=== PATIENT | male | born 1970 | race Two or more races ===

== ENCOUNTER 2018-09-19 15:17 | Emergency (ER) | payer OTHER ==
[~2018-09-19] VITALS: Ht 180.3 cm; Wt 158.8 kg
[2018-09-19 15:36] VITALS: BP 177/99
[2018-09-19] MEDS ORDERED: HYDROcodone-ACET 10/325MG TAB PO ONE (17:15)
[2018-09-19] MEDS ORDERED: KETOROLAC TROMETH 60MG/2ML VIAL IM ONE (17:15)
== END 2018-09-19 18:01 | disposition home or self-care (01) ==
LOC: ER 15:17
DX: M25.562 Pain in left knee (principal); J45.909 Unspecified asthma, uncomplicated; I10 Essential (primary) hypertension; M17.12 Unilateral primary osteoarthritis, left knee
CPT/HCPCS: 73562; 96372; 99283; J1885

== ENCOUNTER 2019-09-13 07:18 | Inpatient (IN) | payer OTHER ==
[2019-09-13] VITALS (9 sets, daily range): BP systolic 91–133; BP diastolic 50–86
[~2019-09-13] VITALS: Ht 182.9 cm; Wt 168.8 kg
[2019-09-13] MEDS ORDERED: NOREPINEPHRINE 8 MG/250ML KIT 250 ML IV ONE (07:31)
[2019-09-13] MEDS: MIDAZOLAM DRIP 50 mg/50mL 50 ML IV SCH ×3 (07:41→18:22)
[2019-09-13] MEDS ORDERED: MIDAZOLAM DRIP 50 mg/50mL 50 ML IV ONE ×2 (07:41→09:58)
[2019-09-13] MEDS ORDERED: SODIUM CHLORIDE 0.9% 1,000 ML IV ONE ×2 (08:07)
[2019-09-13] MEDS ORDERED: DexAMETHasone SOD PHOS 10MG/1ML VIAL INJ IV ONE (08:15)
[2019-09-13] MEDS ORDERED: FUROSEMIDE 40 MG/4 ML VIAL IV ONE (08:15)
[2019-09-13] MEDS ORDERED: AZITHROMYCIN 500MG/ 250ML 250 ML IV ONE (08:15)
[2019-09-13] MEDS ORDERED: cefTRIAXone 1GM/50ML D5W 50 ML IV ONE (08:15)
[2019-09-13 08:35] LABS: Basophils # (auto) 0.1 10 ^3/uL (0-0.2); Basophils % (auto) 0.6 % (0.0-2.0); Eosinophils # (auto) 0.8 10 ^3/uL (0-0.8); Hematocrit 43.9 % (41.0-53.0); Hemoglobin 13.9 g/dL (13.5-17.5); Lymphocytes # (auto) 2.4 10 ^3/uL (0.4-5.4); Lymphocytes % (auto) 14.9 % (10.0-50.0); Mean Corpuscular Hemoglobin 27.4 pg (28.0-32.0); Mean Corpuscular Hgb Conc. 31.7 g/dL (32.0-36.0); Mean Corpuscular Volume 86.5 fL (80.0-100.0); Monocytes # (auto) 0.9 10 ^3/uL (0-1.3); Monocytes % (auto) 5.6 % (0.0-12.0); Neutrophils # (auto) 12.1 10 ^3/uL (1.6-8.6); Neutrophils % (auto) 73.9 % (37.0-80.0); Nucleated Red Blood Cells % 0.3 %; Platelet Count (auto) 284 10^3/uL (140-450); Red Blood Cells 5.07 10^6/uL (4.5-5.90); Red Cell Distribution Width 14.9 % (11.8-14.3); White Blood Cell 16.4 10^3/uL (4.4-10.8)
[2019-09-13 08:48] LABS: INR 1.23 (0.9-1.15); Partial Thromboplastin Time 23.7 sec (23.64-32.05)
[2019-09-13 08:56] LABS: Albumin 2.7 g/dL (3.4-5.0); Potassium 3.7 mmol/L (3.5-5.1)
[2019-09-13 09:02] LABS: BUN/Creatinine Ratio 9.5; Bilirubin, Total 0.3 mg/dL (0.2-1.0); CRP High Sensitivity 0.71 mg/dL (< 0.3); Total Protein 6.7 g/dL (6.4-8.2)
[2019-09-13] MEDS ORDERED: NOREPINEPHRINE 8 MG/250ML KIT 250 ML IV SCH (10:15)
[2019-09-13 11:03] LABS: Urine Amorphous Crystal MOD /hpf (None Seen); Urine Bacteria FEW /hpf (None Seen); Urine Blood 2+ /uL (Negative); Urine Hyaline Cast FEW /lpf (0 - 2); Urine Specific Gravity 1.014 (1.001-1.035); Urine WBC 65 /hpf (0 - 3); Urine WBC Clumps PRESENT /hpf (None Seen)
[2019-09-13] MEDS ORDERED: IOHEXOL 350 MG/ML 100ML IJ ONE ×2 (13:24→13:25)
--- NOTE | 2019-09-13 13:58 | NUR ---
BARIATRIC AIR BED: Bariatric Air bed ordered at [facility] . Reference #[id number]. Please call [facility] at if needed to follow up. Addendum: 09/13/19 at 1402 by Kusum Billings RN Amended: Links added. Addendum: 09/13/19 at 1534 by Kusum Billings RN Received call from [facility] Delivery, ETA [phone]
[2019-09-13] MEDS: PROPOFOL 100 ML IV SCH ×4 (14:40→23:14)
--- NOTE | 2019-09-13 14:40 | NUR ---
WOUND CARE NOTE: Wound care in to see patient due to low Dez score of 12 and intubation status, putting patient to high risk for skin breakdown. Patient is 49 years old male with admitting diagnosis of SOB. Patient is resting in hospital bed in ERbed #5. Patient is intubated, sedated and mechanically ventilated. Patient appears to be in no pain using Jameson Aguilar Faces Pain Scale. Unable to turn patient at this time. Per BOBBY Alegre's reports, no open wound, no pressure injury noted. BOBBY Alegre at bedside. RECOMMENDATION: BID/PRN cleaning and application of Barrier cream to sacral, buttocks as preventative, frequent turning and repositioning schedule as condition permits, redistribute pressure points with pillows, elevate heels on pillows, continue monitoring by wound care while patient is mechanically ventilated.
[2019-09-13] MEDS: NOREPINEPHRINE 8 MG/250ML KIT 250 ML IV SCH ×2 (14:51→20:15)
[2019-09-13] MEDS ORDERED: MORPHINE SULF INJ 2 MG/ML SYRINGE 1ML IV PRN (15:00)
[2019-09-13] MEDS ORDERED: LORazepam 2MG/ML-1ML VIAL IV PRN (15:00)
[2019-09-13] MEDS ORDERED: NITROGLYCERIN 0.4 MG SL TAB SL PRN (15:00)
[2019-09-13] MEDS ORDERED: MORPHINE SULFATE 4 MG/ML SYR/VIAL IV PRN (15:00)
[2019-09-13] MEDS ORDERED: ENOXAPARIN SOD 80 MG/0.8ML SYRINGE SC ONE (15:00)
[2019-09-13] MEDS ORDERED: MONT10TA23 PO (15:02)
[2019-09-13] MEDS ORDERED: AML5T PO (15:02)
[2019-09-13] MEDS ORDERED: CAR125T PO (15:02)
[2019-09-13] MEDS ORDERED: FURO1TAB33 PO (15:02)
[2019-09-13] MEDS ORDERED: SIMV-8 PO (15:02)
[2019-09-13] MEDS ORDERED: HYDR-4833 PO (15:02)
[2019-09-13] MEDS ORDERED: NAPR500T31 PO (15:02)
[2019-09-13] MEDS ORDERED: ALBU108A5 IN (15:05)
[2019-09-13] MEDS ORDERED: LISI40TA11 PO (15:05)
[2019-09-13] MEDS ORDERED: POTA10TA51 PO (15:05)
[2019-09-13] MEDS ORDERED: IPRIH INH (15:05)
[2019-09-13] MEDS ORDERED: HYDR-4296 PO (15:05)
[2019-09-13] MEDS ORDERED: VANCOMYCIN PER PHARMACY 0 MG IV SCH (15:30)
[2019-09-13] MEDS ORDERED: HEPARIN SODIUM (PORCINE) 5000 UNITS/ML 1ML VIAL IV ONE ×2 (16:15→16:45)
[2019-09-13] MEDS: VANCOMYCIN 1GM/250ML 250 ML IV SCH (16:31)
[2019-09-13 16:57] LABS: INR 1.01 (0.9-1.15); Partial Thromboplastin Time 25.9 sec (23.64-32.05)
[2019-09-13] MEDS: HEPARIN DRIP/D5W 100UNITS/ML 250 ML IV SCH (16:57)
[2019-09-13 17:02] LABS: Magnesium 2.4 mg/dL (1.6-2.6)
[2019-09-13 17:04] LABS: Lactic Acid w/Reflex 2.9 mmol/L (0.4-2.0)
[2019-09-13] MEDS: FUROSEMIDE 40 MG/4 ML VIAL IV SCH (17:28)
[2019-09-13] MEDS: HYDROCORTISONE SOD SUCC 100 MG/2ML INJ VIAL IV SCH (17:28)
[2019-09-13] MEDS: PIPERACILLIN-TAZOB 3.375GM 100 ML IV SCH (17:28)
[2019-09-13] MEDS ORDERED: PIPERACILLIN-TAZOB 3.375GM 3.375 GM in D5W 5% 100 ML IV SCH (18:00)
[2019-09-13] MEDS ORDERED: VANCOMYCIN 1GM/250ML 250 ML IV SCH (22:00)
[2019-09-13] MEDS ORDERED: ENOXAPARIN SOD 80 MG/0.8ML SYRINGE SC SCH ×2 (22:00)
[2019-09-13] MEDS: FAMOTIDINE (10MG/ML) 2ML VL IV SCH (23:09)
[2019-09-13] MEDS: CARVEDILOL 3.125 MG TAB PO SCH (23:09)
--- NOTE | 2019-09-13 23:40 | NUR ---
Admit to ICU from ER on vent EDDIE MCKEON admitted to ICU via gurney on environmental monitoring technician, intubated and connected to portable vent. Patient transferred to bed, connected to mechanical ventilator by therapist, ZEFERINO at bedside. Patient connected to ICU monitoring, weighed by bedscale. NOTE:DRIPS VERSED 15MG/HR, PROPOFOL 50 MCG/KG/MIN, LEVOPHED 2MCG/MIN, HEPARIN 20 ML/HR. MANAGER CORPORATE MARKETING BROUGHT SPECIAL MATTRESS BED FROM ER AND WE TRANSFERRED PATIENT TO THAT BED.
[2019-09-13 23:49] LABS: INR 1.07 (0.9-1.15)
[2019-09-13 23:53] LABS: Partial Thromboplastin Time 110.6 sec (23.64-32.05)
--- NOTE | 2019-09-13 23:55 | NUR ---
Patient bathe/linen change Patient given complete bath. Skin integrity assessed for any changes. Linens changed. Patient repositioned for comfort.
[2019-09-14] VITALS (103 sets, daily range): BP systolic 91–150; BP diastolic 51–99
[2019-09-14] MEDS: HYDROCORTISONE SOD SUCC 100 MG/2ML INJ VIAL IV SCH ×3 (00:33→12:14)
[2019-09-14] MEDS: PIPERACILLIN-TAZOB 3.375GM 100 ML IV SCH ×4 (00:33→17:35)
[2019-09-14] MEDS: PROPOFOL 100 ML IV SCH ×8 (01:47→18:22)
--- NOTE | 2019-09-14 02:40 | NUR ---
NEURO STATUS PATIENT IS UNAROUSABLE, PUPILS ARE 3 AND SLUGGISH, NO RESPONSE TO ANY STIMULI SO DIPRIVAN WAS DECREASED TO 40 MCG/KG/MIN TO SEE CHANGES IN SEDATION SCALE. EYE TWITCHING AND LEGS TWITCHING NOTED NOW. WILL NOTIFY
[2019-09-14 02:45] LABS: Basophils # (auto) 0 10 ^3/uL (0-0.2); Basophils % (auto) 0.1 % (0.0-2.0); Eosinophils # (auto) 0 10 ^3/uL (0-0.8); Hematocrit 40.2 % (41.0-53.0); Hemoglobin 12.8 g/dL (13.5-17.5); Lymphocytes # (auto) 0.8 10 ^3/uL (0.4-5.4); Lymphocytes % (auto) 3.3 % (10.0-50.0); Mean Corpuscular Hemoglobin 27.3 pg (28.0-32.0); Mean Corpuscular Hgb Conc. 31.8 g/dL (32.0-36.0); Monocytes # (auto) 0.6 10 ^3/uL (0-1.3); Monocytes % (auto) 2.6 % (0.0-12.0); Neutrophils # (auto) 23.4 10 ^3/uL (1.6-8.6); Nucleated Red Blood Cells % 0.1 %; Platelet Count (auto) 246 10^3/uL (140-450); Red Blood Cells 4.68 10^6/uL (4.5-5.90); Red Cell Distribution Width 14.9 % (11.8-14.3); White Blood Cell 24.9 10^3/uL (4.4-10.8)
--- NOTE | 2019-09-14 02:55 | NUR ---
Hospitalist returned call Joao GOMEZ returned call, updated on patient status and reason for call, orders received to keep sedation as previous( diprivan 50 mcg). Continue care. Addendum: 09/14/19 at 0725 by Lenin Hyatt RN MD AWARE ABOUT PATIENT'S NEURO STATUS.
[2019-09-14 03:01] LABS: BUN/Creatinine Ratio 11.4; Calcium 7.9 mg/dL (8.5-10.1); Potassium 3.6 mmol/L (3.5-5.1)
[2019-09-14] MEDS: MIDAZOLAM DRIP 50 mg/50mL 50 ML IV SCH ×4 (03:08→17:29)
[2019-09-14] MEDS: FUROSEMIDE 40 MG/4 ML VIAL IV SCH (05:49)
[2019-09-14] MEDS: HEPARIN DRIP/D5W 100UNITS/ML 250 ML IV SCH ×3 (05:56→21:57)
--- NOTE | 2019-09-14 07:30 | NUR ---
Opening Shift Note Assumed care of patient, intubated and sedated. No S/S of distress/SOB or pain. See interventions for complete assessment. Bed locked on low position, side rails up x2, bed alarms on at all times, will continue to monitor for changes Q1hr and PRN.
--- NOTE | 2019-09-14 07:50 | NUR ---
PTT still pending, awaiting result.
--- NOTE | 2019-09-14 08:01 | NUR ---
PTT 65.8. No bolus, no change per protocol.
--- NOTE | 2019-09-14 09:28 | NUR ---
Received call from patient's Di who's able to provide password. Updated on patient's status and POC, verbalized understanding. All questions and concerns addressed.
[2019-09-14] MEDS ORDERED: ENOXAPARIN SOD 40 MG/0.4 ML SYRINGE SC SCH (10:00)
[2019-09-14] MEDS: CARVEDILOL 3.125 MG TAB PO SCH (10:00)
[2019-09-14] MEDS: VANCOMYCIN 1GM/250ML 250 ML IV SCH (10:42)
[2019-09-14] MEDS: FAMOTIDINE (10MG/ML) 2ML VL IV SCH ×2 (10:42→21:52)
--- NOTE | 2019-09-14 14:18 | NUR ---
PTT still pending, awaiting result.
[2019-09-14 14:25] LABS: INR 1.01 (0.9-1.15); Partial Thromboplastin Time 63.2 sec (23.64-32.05)
--- NOTE | 2019-09-14 14:28 | NUR ---
Dr John at bedside, updated on patient's status. Shown EKG with prolonged QT. Patient seen and examined. Will carry out new orders.
--- NOTE | 2019-09-14 14:30 | NUR ---
Patient's PTT 63.2. No bolus, no change per protocol.
--- NOTE | 2019-09-14 14:40 | NUR ---
Dr Ly and Dr Barlow at bedside, updated on patient's status. Patient seen and examined. Will carry out new orders.
--- NOTE | 2019-09-14 15:02 | NUR ---
Called in Neuro consult to Dr De La Cruz.
--- NOTE | 2019-09-14 15:20 | NUR ---
Urine sample sent to lab
[2019-09-14 16:18] LABS: Amphetamine Screen, Urine NEGATIVE (NEGATIVE); Barbiturate Scree,Urine NEGATIVE (NEGATIVE); Benzodiazephine Screen, Urine POSITIVE (NEGATIVE); Cannabinoid Screen, Urine NEGATIVE (NEGATIVE); Cocaine Screen, Urine NEGATIVE (NEGATIVE); Opiate Scree,Urine NEGATIVE (NEGATIVE); Phencyclidine Screen, Urine NEGATIVE (NEGATIVE)
[2019-09-14] MEDS ORDERED: PANTOPRAZOLE 40 MG/10 ML VIAL INJ IV ONE (16:45)
--- NOTE | 2019-09-14 17:10 | NUR ---
Repositioned patient, saturation decreased to 60's, low lung volumes per mech vent, suctioning and bagging done, patient started to wake, biting vent.
[2019-09-14] MEDS: SODIUM CHLORIDE 0.9% 1,000 ML IV SCH (17:30)
--- NOTE | 2019-09-14 18:23 | NUR ---
Dr De La Cruz at bedside, updated on patient's status. Patient seen and examined. Will carry out new orders.
[2019-09-14 20:52] LABS: INR 1.03 (0.9-1.15); Partial Thromboplastin Time 58.7 sec (23.64-32.05)
--- NOTE | 2019-09-14 21:00 | NUR ---
SEDATION VACATION PROPOFOL AND VERSED TURNED OFF.
[2019-09-14] MEDS: CLINDAMYCIN 600MG IV 50 ML IV SCH (21:52)
--- NOTE | 2019-09-14 22:20 | NUR ---
Respiratory note: VENT ALARMING HIGH PRESSURE AND LOW VT, PT SPO2 NOTED AT 87%. HME CHANGED, ALARMS NO LONGER ACTIVATED, SPO2 IMPROVED TO 95%. RN AT BEDSIDE. WILL CONTINUE TO MONITOR.
[2019-09-15] VITALS (99 sets, daily range): BP systolic 106–198; BP diastolic 61–133
--- NOTE | 2019-09-15 00:15 | NUR ---
PATIENT IS BACK FROM CT.
--- NOTE | 2019-09-15 00:18 | NUR ---
Respiratory note: RETURNED FROM CT. PT WAS TRANSPORTED ON TRANSPORT VENT WITH PROPER SETTINGS CONNECTED TO AN OXYGEN TANK WITH A SET FIO2 OF 45%, SPARE OXYGEN TANK BROUGHT ALONG IN TRANSPORT. AFTER CT WAS COMPLETED, PT'S SPO2 DROPPED TO 84%, ALARM ACTIVE FOR LOW VT AND HIGH PRESSURE. PT REMOVED FROM TRANSPORT VENT AND BAGGED WITH 100% FIO2 VIA AMBU BAG WITH PEEP VALVE. PT BAGGED DURING REMAINDER OF TRANSPORT, SPO2 NOTED AT 96%. PT PLACED BACK ON VENT WITH PRIOR SETTINGS AND SUCTIONED FOR LARGE A RETURN OF SECRETIONS VIA ORAL AND ET TUBE. PT SPO2 NOTED AT 94% WITH CONSISTENT TIDAL VOLUMES. WILL CONTINUE TO MONITOR.
[2019-09-15] MEDS: PIPERACILLIN-TAZOB 3.375GM 100 ML IV SCH ×5 (00:33→23:41)
--- NOTE | 2019-09-15 00:54 | NUR ---
Respiratory note: VENT ALARMING, RN AT BEDSIDE. LOW VT AND HIGH PRESSURE ALARMS ACTIVE. HME REMOVED, VOLUMES RETURNED TO SET VT AND PEAK PRESSURES REDUCED. HME SATURATED. RT DYLAN AT BEDSIDE TO BAG PT WITH PEEP VALVE WHILE VENT V16 WAS SET UP WITH A HEATED WIRE CIRCUIT. VENT SST'D AND PASSED. PT PLACED BACK ON VENT WITH PREVIOUS SETTINGS, ABDIRAHMAN HEATER SET TO INVASIVE MODE WITH LOWEST HUMIDIFICATION SETTING TO PREVENT EXCESSIVE CONDENSATION, WILL ADJUST NEEDED, TEMPERATURE SET TO 35.0 CELSIUS, WATER AT ADEQUATE LEVEL. PT TOLERATING WELL AT THIS TIME. VENT ALARMS CHECKED AND AUDIBLE, VENT PLUGGED INTO RED OUTLET. VENT WHEELS LOCKED. WILL CONTINUE TO MONITOR.
--- NOTE | 2019-09-15 01:00 | NUR ---
HTN/TACHYPNEA AFTER PATIENT CAME BACK FROM CT HEAD, HE IS HYPERTENSIVE AND TACHYPNEIC. RT CHANGED VENT TUBINGS. PATIENT IS OFF SEDATION AND STILL UNAROUSABLE. HE OPENS EYES SPONTANEOUSLY. WAITING FOR PATIENT TO CALM DOWN.
--- NOTE | 2019-09-15 01:45 | NUR ---
BP DECREASED TO 165/111MMHG. WILL MONITOR CLOSELY
--- NOTE | 2019-09-15 03:00 | NUR ---
CAMRYN HOSPITALIST REGARDING HTN. Addendum: 09/15/19 at 0458 by Lenin Hyatt RN WHEN RN CAME BACK FROM LUNCH BREAK, PATIENT'S BP IS STILL HIGH. HE IS UNAROUSABLE.
[2019-09-15] MEDS ORDERED: LABETALOL HCL 5 MG/ML 4ML SYRINGE IV ONE ×2 (03:11→03:15)
--- NOTE | 2019-09-15 03:12 | NUR ---
HOSPITALIST CALLED BACK CLAY ARMORING MACHINE OPERATOR CALLED BACK AND ORDERED FOR LABETALOL 10 MG IV X1 AND RESTART PROPOFOL.
[2019-09-15] MEDS: PROPOFOL 100 ML IV SCH ×4 (03:22→22:44)
--- NOTE | 2019-09-15 04:40 | NUR ---
PAGED HOSPITALIST REGARDING HTN.
--- NOTE | 2019-09-15 05:03 | NUR ---
HOSPITALIST CALLED BACK CLAY GOMEZ CALLED BACK AND ORDERED FOR HYDRALAZINE 10 MG IV X1.
[2019-09-15] MEDS ORDERED: hydrALAZINE HCL 20 MG/ML VL IV ONE ×2 (05:15→10:15)
[2019-09-15] MEDS: CLINDAMYCIN 600MG IV 50 ML IV SCH ×3 (05:34→22:20)
[2019-09-15] MEDS: SODIUM CHLORIDE 0.9% 1,000 ML IV SCH (05:36)
--- NOTE | 2019-09-15 06:15 | NUR ---
PAGED REGARDING HTN.
--- NOTE | 2019-09-15 06:25 | NUR ---
DR.PONCE DELUCA CALLED BACK AND ORDERS RECEIVED.
[2019-09-15 06:26] LABS: Basophils # (auto) 0 10 ^3/uL (0-0.2); Basophils % (auto) 0.1 % (0.0-2.0); Eosinophils # (auto) 0 10 ^3/uL (0-0.8); Eosinophils % (auto) 0.1 % (0.0-7.0); Hematocrit 41.1 % (41.0-53.0); Hemoglobin 13.4 g/dL (13.5-17.5); Lymphocytes # (auto) 1.2 10 ^3/uL (0.4-5.4); Lymphocytes % (auto) 5.9 % (10.0-50.0); Mean Corpuscular Hemoglobin 27.7 pg (28.0-32.0); Mean Corpuscular Hgb Conc. 32.5 g/dL (32.0-36.0); Mean Corpuscular Volume 85.2 fL (80.0-100.0); Monocytes # (auto) 1.2 10 ^3/uL (0-1.3); Monocytes % (auto) 6.1 % (0.0-12.0); Neutrophils # (auto) 17.7 10 ^3/uL (1.6-8.6); Neutrophils % (auto) 87.8 % (37.0-80.0); Platelet Count (auto) 235 10^3/uL (140-450); Red Blood Cells 4.82 10^6/uL (4.5-5.90); Red Cell Distribution Width 15.3 % (11.8-14.3); White Blood Cell 20.1 10^3/uL (4.4-10.8)
[2019-09-15] MEDS ORDERED: cloNIDine HCL 0.1 MG TAB PO PRN (06:30)
[2019-09-15] MEDS ORDERED: hydrALAZINE HCL 10 MG TAB PO ONE (06:30)
[2019-09-15 06:40] LABS: INR 1.01 (0.9-1.15)
[2019-09-15 06:44] LABS: Potassium 3.1 mmol/L (3.5-5.1)
[2019-09-15 06:54] LABS: Albumin 2.6 g/dL (3.4-5.0); BUN/Creatinine Ratio 12.5; Bilirubin, Total 0.5 mg/dL (0.2-1.0); Calcium 8.1 mg/dL (8.5-10.1); Total Protein 6.9 g/dL (6.4-8.2)
[2019-09-15] MEDS ORDERED: MORPHINE SULF INJ 2 MG/ML SYRINGE 1ML IV PRN (07:00)
--- NOTE | 2019-09-15 07:59 | NUR ---
RN witnessed patient having a seizure. Patient eyes appear to roll back and jerking motion noted. Dr. De La Cruz at the nursing station and updated by staff. MD arrived at bedside to assess the patient. Seizure precaution initiated per protocol. Safety maintained, will continue to monitor.
--- NOTE | 2019-09-15 08:13 | NUR ---
Max temperature 101.2, cooling measures initiated per protocol. Ice packs applied to patient's axillary and groin area. Tylenol 650mg PO given. Safety maintained, will continue to monitor.
[2019-09-15] MEDS: ACETAMINOPHEN 650 mg PER 20 mL UD PO PRN ×2 (08:19→15:54)
[2019-09-15] MEDS: PANTOPRAZOLE 40 MG/10 ML VIAL INJ IV SCH (08:19)
[2019-09-15] MEDS: FAMOTIDINE (10MG/ML) 2ML VL IV SCH ×2 (08:19→22:19)
--- NOTE | 2019-09-15 08:34 | NUR ---
RN witnessed patient having a seizure. Patient eyes appears to roll back and patient is jerking. Dr. De La Cruz informed, orders received to start Versed gtt at 15ml/hr.
[2019-09-15] MEDS: HEPARIN DRIP/D5W 100UNITS/ML 250 ML IV SCH ×2 (08:48→19:08)
[2019-09-15] MEDS: MIDAZOLAM DRIP 50 mg/50mL 50 ML IV SCH ×5 (08:51→19:09)
[2019-09-15] MEDS ORDERED: CARVEDILOL 12.5 MG TAB PO SCH (10:00)
[2019-09-15] MEDS ORDERED: LISINOPRIL 20 MG TAB PO SCH (10:00)
--- NOTE | 2019-09-15 10:00 | NUR ---
Patient's (Valerie), updated via telephone. All questions and concerns addressed.
--- NOTE | 2019-09-15 10:04 | NUR ---
Shefali Burgos, PUBLICITY DIRECTOR at bedside and updated regarding patient's BP, orders received.
[2019-09-15] MEDS ORDERED: CARVEDILOL 12.5 MG TAB PO ONE (10:15)
[2019-09-15] MEDS ORDERED: FUROSEMIDE 40 MG/4 ML VIAL IV ONE (10:45)
[2019-09-15] MEDS: POTASSIUM CHL 20MEQ/100ML 100 ML IV SCH ×2 (11:09→13:03)
--- NOTE | 2019-09-15 11:15 | NUR ---
Dr. Ly at bedside and observed the patient having a seizure.
--- NOTE | 2019-09-15 11:31 | NUR ---
Dr. Ly updated patient's via telephone.
--- NOTE | 2019-09-15 11:38 | NUR ---
Nutrition Assessment Notes please see attached link for complete assessment Est Energy needs ABW 124 k-2480kcals (17-20 kcal/kgBW), Est Protein needs: 99-124 gms/day (0.8-1.0 gm/kgBW) d/t pt elev RFT CKD. Will continue to monitor and reassess prn. Addendum: 09/15/19 at [address] Amended: Links added.
--- NOTE | 2019-09-15 12:24 | NUR ---
Urine sample obtained and sent to lab.
--- NOTE | 2019-09-15 12:55 | NUR ---
satellite tv technician at bedside.
[2019-09-15] MEDS ORDERED: EPINEPHrine HCL 1 MG/10 ML SYRG IV ONE (12:56)
[2019-09-15] MEDS ORDERED: SODIUM BICARBONATE 8.4% INJ 50ML SYRINGE IV ONE (12:56)
--- NOTE | 2019-09-15 12:56 | NUR ---
RN witnessed patient having a seizure. Dr. Ly informed, orders received to increase patient's Diprivan.
--- NOTE | 2019-09-15 12:57 | NUR ---
Dr. De La Cruz paged, awaiting call back.
[2019-09-15 13:13] LABS: Protein, Urine 32.1 mg/dL (0.0-11.9)
--- NOTE | 2019-09-15 13:17 | NUR ---
Lab at bedside.
--- NOTE | 2019-09-15 13:21 | NUR ---
Dr. Wynn at bedside.
--- NOTE | 2019-09-15 13:25 | NUR ---
ELECTROENCEPHALOGRAM EEG COMPLETED AT BEDSIDE. PRIMARY RN ESE RAY.
--- NOTE | 2019-09-15 13:41 | NUR ---
Dr. Miranda at bedside.
--- NOTE | 2019-09-15 16:31 | NUR ---
assessment Patient is a 49 year old male who is in ICU on a vent. Per patients Di prior to admission patient lived home with her and was independent. Per Di patient was washing his car when he felt ill and was having shortness of breath. 911 was called and patient coded on the way to the hospital. CPR was started and patient was intubated on arrival. Patient does have a nebulizer for home use. I informed Di patients post discharge needs to be determined after extubation and prior to discharge. I will continue to monitor and follow up as appropriate. Di verbalized understanding. Addendum: 09/15/19 at 1638 by Alysha TIM Amended: Links added.
[2019-09-15] MEDS: hydrALAZINE HCL 10 MG TAB PO SCH ×2 (18:00→23:45)
--- NOTE | 2019-09-15 19:23 | NUR ---
OPENING NOTE RECEIVED REPORT FROM MICHAELALFT AND ASSUMED CARE OF PT. PT IS MECHANICALLY VENTILATED AND SEDATED (SEE IV SPREADSHEET). VITAL SIGNS ARE STABLE WITH NO S/S OF DISTRESS NOTED AT THIS TIME. PT IS ON BARIATRIC BED WITH ALL EXTREMITIES OFFLOADED WITH PILLOWS AND SCDS APPLIED TO BILATERAL LE. OLIVER CATHETER IN PLACE AND DRAINING TO GRAVITY APPROPRIATELY. HEPARIN GTT RUNNING PER PROTOCOL FOR PE TO RIGHT LUNG. NO S/S OF BLEEDING ARE PRESENT AT THIS TIME- MOUTH IS DRY AND URINE IS YELLOW WITH NO PINK/REDNESS NOTED. ORAL CARE DONE AND PT TURNED AT THIS TIME.
[2019-09-15 20:08] LABS: INR 1.17 (0.9-1.15)
[2019-09-15 21:44] LABS: INR 1.05 (0.9-1.15); Partial Thromboplastin Time 65.6 sec (23.64-32.05)
[2019-09-15] MEDS: CARVEDILOL 12.5 MG TAB PO SCH (22:00)
[2019-09-16] VITALS (105 sets, daily range): BP systolic 105–150; BP diastolic 72–95
--- NOTE | 2019-09-16 02:50 | NUR ---
PT CARE GAVE PT CHG BATH. SHANIA/CATHETER CARE DONE. FULL AUGUST CHANGE DONE. ORAL CARE DONE AND PT TURNED. PT DID NOT TOLERATE TURNING WELL- HE DESATURATED INTO THE 60'S, RR INCREASED TO THE 30'S-40'S AND PT TURNED BRIGHT RED IN THE FACE. SUCTIONED PT ORALLY AND DOWN ET TUBE WITH MINIMAL SECRETIONS NOTED. ALL EXTREMETIES OFFLOADED WITH PILLOWS AND SCDS REMAIN IN PLACE.
[2019-09-16] MEDS: PROPOFOL 100 ML IV SCH ×7 (04:35→23:23)
[2019-09-16] MEDS: MIDAZOLAM DRIP 50 mg/50mL 50 ML IV SCH ×5 (04:36→20:06)
[2019-09-16 04:39] LABS: Basophils # (auto) 0 10 ^3/uL (0-0.2); Basophils % (auto) 0.3 % (0.0-2.0); Eosinophils # (auto) 0.5 10 ^3/uL (0-0.8); Eosinophils % (auto) 4.2 % (0.0-7.0); Hematocrit 37.3 % (41.0-53.0); Hemoglobin 12.3 g/dL (13.5-17.5); Lymphocytes % (auto) 8.4 % (10.0-50.0); Mean Corpuscular Hemoglobin 27.9 pg (28.0-32.0); Mean Corpuscular Hgb Conc. 32.9 g/dL (32.0-36.0); Mean Corpuscular Volume 84.6 fL (80.0-100.0); Monocytes # (auto) 0.8 10 ^3/uL (0-1.3); Monocytes % (auto) 6.6 % (0.0-12.0); Neutrophils # (auto) 9.8 10 ^3/uL (1.6-8.6); Neutrophils % (auto) 80.5 % (37.0-80.0); Platelet Count (auto) 215 10^3/uL (140-450); Red Blood Cells 4.41 10^6/uL (4.5-5.90); Red Cell Distribution Width 15.7 % (11.8-14.3); White Blood Cell 12.2 10^3/uL (4.4-10.8)
[2019-09-16 05:00] LABS: Albumin 2.3 g/dL (3.4-5.0); Calcium 7.8 mg/dL (8.5-10.1)
[2019-09-16 05:03] LABS: INR 1.08 (0.9-1.15)
[2019-09-16 05:04] LABS: BUN/Creatinine Ratio 16.7; Bilirubin, Total 0.5 mg/dL (0.2-1.0); Total Protein 6.2 g/dL (6.4-8.2)
[2019-09-16 05:23] LABS: Potassium 2.8 mmol/L (3.5-5.1)
--- NOTE | 2019-09-16 05:26 | NUR ---
JASON COWAN FOR CRITICAL LAB RESULTS.
[2019-09-16] MEDS: CLINDAMYCIN 600MG IV 50 ML IV SCH ×3 (06:06→21:55)
[2019-09-16] MEDS: HEPARIN DRIP/D5W 100UNITS/ML 250 ML IV SCH (06:12)
[2019-09-16] MEDS: POTASSIUM CHL 20MEQ/100ML 100 ML IV SCH ×2 (06:12→08:10)
[2019-09-16] MEDS: hydrALAZINE HCL 10 MG TAB PO SCH ×4 (06:56→23:45)
[2019-09-16] MEDS: PIPERACILLIN-TAZOB 3.375GM 100 ML IV SCH ×4 (06:59→23:46)
--- NOTE | 2019-09-16 08:38 | NUR ---
dr watson ordered tube feedings and accuchecks, aware abg is being done at this time
[2019-09-16] MEDS ORDERED: Glucerna 1.2 Cal 1Liter BOTTLE GT SCH (08:45)
[2019-09-16] MEDS ORDERED: DEXTROSE (50%) 50ML SYRG IV PRN (08:45)
[2019-09-16] MEDS: PANTOPRAZOLE 40 MG/10 ML VIAL INJ IV SCH (10:32)
[2019-09-16] MEDS: FAMOTIDINE (10MG/ML) 2ML VL IV SCH ×2 (10:32→21:55)
[2019-09-16] MEDS: CARVEDILOL 12.5 MG TAB PO SCH ×2 (10:33→21:56)
--- NOTE | 2019-09-16 11:30 | NUR ---
TUBE FEEDINGS STARTED AT 10ML/HR.
[2019-09-16] MEDS: InsuLIN REG 1unit/0.01ml Soln (100units/ml) SC SCH ×3 (12:00→23:46)
[2019-09-16] MEDS: ACCU-CHEK COMFORT CURVE STRIP VI SCH ×3 (12:16→23:46)
[2019-09-16 12:32] LABS: Magnesium 2.2 mg/dL (1.6-2.6); Phosphorus 4.9 mg/dL (2.5-4.90)
--- NOTE | 2019-09-16 12:35 | NUR ---
UPDATED GARY ON PLAN OF CARE DID DR CONTRERAS OVER PHONE AFTER PASSWORD OBTAINED
[2019-09-16 12:40] LABS: Potassium 2.8 mmol/L (3.5-5.1)
[2019-09-16] MEDS ORDERED: POTASSIUM EFFERVESENT TAB 25 MEQ GT ONE (13:00)
--- NOTE | 2019-09-16 15:30 | NUR ---
Respiratory note: PT HAS WHAT APPEARS TO BE A LARGE HEMATOMA ON THE RIGHT SIDE OF NECK. RN AWARE. STAT ULTRASOUND ORDERED. WILL CONTINUE TO MONITOR PT.
[2019-09-16] MEDS ORDERED: POTASSIUM EFFERVESENT TAB 25 MEQ PO ONE (16:00)
--- NOTE | 2019-09-16 16:05 | NUR ---
Respiratory note: TRANSPORTED TO CT VIA TRANSPORT VENT WITHOUT INCIDENT. RN/TECH AT BEDSIDE.
[2019-09-16 16:11] LABS: Hematocrit 36.8 % (41.0-53.0)
[2019-09-16 16:26] LABS: INR 1.07 (0.9-1.15); Partial Thromboplastin Time 56.1 sec (23.64-32.05)
--- NOTE | 2019-09-16 16:30 | NUR ---
Respiratory note: PT TRANSPORTED FROM CT BACK TO ICU ROOM 102 WITHOUT INCIDENT. RN, AND TECH AT BEDSIDE. WILL CONTINUE TO MONITOR PT.
--- NOTE | 2019-09-16 16:38 | NUR ---
PATIENT TAKEN TO AND FROM CT FOR STAT HEAD/NECK WO CONTRAST DUE TO LARGE SOFTBALL SIZED HARD LUMP IN RIGHT NECK WITH BRUISING NOTED TO AREA. HEPARIN GTT TURNED OFF AT 1530 UPON NEW FINDING OF NECK LUMP. DR MEZA AWARE AND ORDERED CT/ULTRASOUND. DR CONTRERAS AWARE. STAT LABS SENT PER DR MEZA ORDER. DR MEZA SPOKE WITH GARY AND AWARE OF RESULTS OF PREVIOUS HEAD CT/EEG. DR MEZA GAVE OK FOR FAMILY AND PAVING CREW FOREMAN OK WITH LETTING AND ALL CHILDREN INCLUDING 10 Y/O TO VISIT PATIENT. AWARE OF NEED TO WEAR MASK UPON ENTERING THE HOSPITAL AND AGREED.
--- NOTE | 2019-09-16 17:45 | NUR ---
AND 3 KIDS AT BEDSIDE WITH MASKS, 10 Y/O CHILD STAYED HOME PER . ALL QUESTIONS/CONCERNS ADDRESSED.
--- NOTE | 2019-09-16 20:11 | NUR ---
RESIDUAL 55ML PAUSED FEEDING FEEDING WAS RUNNING AT 20 ML/HR
--- NOTE | 2019-09-16 22:00 | NUR ---
COOLING MEASURES IMPLEMENTED TEMP 99.7 APPLIED ICE PACKS BILATERAL AXILLA DECREASED ROOM TEMP USING THERMOSTAT REMOVED BLANKETS
[2019-09-16 22:32] LABS: Calcium 7.7 mg/dL (8.5-10.1); Potassium 3.4 mmol/L (3.5-5.1)
[2019-09-16 22:34] LABS: BUN/Creatinine Ratio 17.9
--- NOTE | 2019-09-16 23:20 | NUR ---
HOSPITALIST CALLED BACK REGARDING LOW K K 3.4 NEW ORDER: 20 MEQ K RIDER
[2019-09-16] MEDS ORDERED: POTASSIUM CHL 20MEQ/100ML 100 ML IV ONE (23:30)
[2019-09-17] VITALS (104 sets, daily range): BP systolic 118–172; BP diastolic 78–111
--- NOTE | 2019-09-17 00:40 | NUR ---
NEW 16F OLIVER INSERTED OLIVER IS NOT DRAINING ANY URINE COULD NOT FLUSH OLIVER USING STERILE WATER AFTER REMOVAL OF OLIVER PT URINATED APPROXIMATELY 300 CC TIP OF THE OLIVER IS OCCULTED BY SEDIMENT. ARTHUR Cool RN INSERTED NEW 16F OLIVER PT TOLERATED WELL. YELLOW URINE FREE OF SEDIMENT IS DRAINING DOWN THE GRAVITY, NO SIGN OF FLOOD.
[2019-09-17] MEDS: MIDAZOLAM DRIP 50 mg/50mL 50 ML IV SCH ×5 (00:57→19:25)
--- NOTE | 2019-09-17 01:34 | NUR ---
IV removal from left AC IV DC'd with clean sterile technique, catheter fully intact. Pressure dressing applied to site. Patient tolerated well.
[2019-09-17] MEDS: PROPOFOL 100 ML IV SCH ×6 (01:41→22:20)
--- NOTE | 2019-09-17 02:40 | NUR ---
PT HAD BM SMALL SOFT BROWN STOOL
--- NOTE | 2019-09-17 02:50 | NUR ---
CARES CHG BED BATH, FULL BED LINEN CHANGE PT TOLERATED CARES APPLIED OPTIFOAM TO SACRUM PREVENTATIVE MEASURE
--- NOTE | 2019-09-17 03:00 | NUR ---
RESIDUAL 35 ML GREEN BILE STARTED FEEDING AT 10 ML/HR
[2019-09-17 04:56] LABS: Potassium 3.2 mmol/L (3.5-5.1)
[2019-09-17 05:01] LABS: Albumin 2.1 g/dL (3.4-5.0); BUN/Creatinine Ratio 17.8; Bilirubin, Total 0.6 mg/dL (0.2-1.0); Calcium 7.7 mg/dL (8.5-10.1); Total Protein 5.9 g/dL (6.4-8.2)
[2019-09-17] MEDS: CLINDAMYCIN 600MG IV 50 ML IV SCH ×3 (05:56→21:53)
[2019-09-17] MEDS: InsuLIN REG 1unit/0.01ml Soln (100units/ml) SC SCH (06:00)
[2019-09-17] MEDS: PIPERACILLIN-TAZOB 3.375GM 100 ML IV SCH ×4 (06:00→23:57)
[2019-09-17] MEDS: hydrALAZINE HCL 10 MG TAB PO SCH ×2 (06:00→19:24)
[2019-09-17] MEDS: ACCU-CHEK COMFORT CURVE STRIP VI SCH (06:00)
--- NOTE | 2019-09-17 06:10 | NUR ---
Respiratory note: PT RECEIVED ON VENT # V18, PLUGGED INTO A RED OUTLET AND PROPER O2 SOURCE.AMBU BAG AT BEDSIDE. ALARMS ARE PROPERLY SET,FUNCTIONING,AND AUDIBLE. ETT SECURED WITH A HOLISTER AND MOVED TO THE RIGHT. THER IS A SCAB NOTED ON THE UPPER LEFT LIP.BILATERAL BS ARE CLEAR AND DIMINISHED THROUGHOUT.SKIN IS WARM AND DRY TO THE TOUCH WITH EDEMA NOTED BILATERALLY ON ALL APPENDICULARS.POC:MAINTAIN ADEQUATE OXYGENATION,VENTILATION,AND PULMONARY HYGIENE.
--- NOTE | 2019-09-17 07:45 | NUR ---
REPORT REPORT RECEIVED FROM MUMTAZ RNKUNAL. BEDSIDE CHECK DONE. PT RESTING IN BED WITH EYES CLOSED, SEDATED NAD INTUBATED WITH VSS. CONTINUE TO MONITOR.
--- NOTE | 2019-09-17 07:56 | NUR ---
ASSESSMENT PT SEDATED WHILE INTUBATED. NO SPONTANEOUS MOVEMENT NOTED. VENTILATOR SETTINGS OF : 8 FR ETT/26 AT THE LIP, TV 500, AC 24, 40% FIO2 AND PEEP OF 8. LUNGS CLEAR THROUGHOUT. SUCTIONED FOR SMALL AMOUNT OF THIN CLEAR FLUID VIA ETT. ORAL CARE PROVIDED. TELE SB 58. PALPABLE PULSES TO ALL EXTREMITIES. ABD SOFT WITH HYPOACTIVE BOWEL SOUNDS NOTED. SMALL LOOSE BROWN BM AND SHANIA CARE PROVIDED. OLIVER CATHETER DRAINING CLEAR YELLOW URINE. TURNED FOR COMFORT. PT WITH SACRAL OPTIFOAM IN PLACE AND SKIN UNDER IS CLEAR OF ANY BREAKDOWN. AREAS OF HYPOPIGMENTATION NOTED ON BODY. RAILS UP X4 AND BED IN LOW POSITION FOR PT SAFETY.
--- NOTE | 2019-09-17 07:56 | NUR ---
PT TEACHING PT UNABLE TO BENEFIT FROM PT TEACHING PT IS INTUBATED AND SEDATED. Addendum: 09/17/19 at 1945 by Kelsey Chen RN Amended: Links added.
[2019-09-17] MEDS: POTASSIUM CHL 20MEQ/100ML 100 ML IV SCH ×2 (07:57→09:39)
[2019-09-17] MEDS: PANTOPRAZOLE 40 MG/10 ML VIAL INJ IV SCH (09:40)
[2019-09-17] MEDS: FAMOTIDINE (10MG/ML) 2ML VL IV SCH ×2 (09:40→21:51)
[2019-09-17] MEDS: CARVEDILOL 12.5 MG TAB PO SCH ×2 (09:41→21:52)
--- NOTE | 2019-09-17 11:15 | NUR ---
MD VISIT PT SEEN AND EXAMINED BY DR CONTRERAS. I UPDATED HER ON THE PT'S CURRENT CONDITION. SHE STATED THAT SHE SPOKE WITH THE PT'S , BY PHONE, AND THAT THE IS GOING TO SPEAK WITH OTHER FAMILY MEMBERS REGARDING POSSIBLE TERMINAL WEAN.
--- NOTE | 2019-09-17 12:00 | NUR ---
ACCUCHECK OF 90. PO MEDS GIVEN AND FEEDING RE-STARTED AT 10 ML/HR. CONTINUE TO MONITOR RESIDUAL.
--- NOTE | 2019-09-17 16:00 | NUR ---
ELIMINATION PT INCONTINENT OF LARGE AMOUNT OF THICK LOOSE BROWN BM. SHANIA CARE GIVEN AND PARTIAL LINEN CHANGE DONE.
--- NOTE | 2019-09-17 17:45 | NUR ---
PT WITH LUNGS WITH INSPIRATORY RHONCHI AND EXPIRATORY WHEEZES. SUCTIONED VIA ETT FOR SMALL AMOUNT OF THICK BLOOD TINGED SPUTUM.
--- NOTE | 2019-09-17 18:05 | NUR ---
CALLED PHARMACY FOR HYDRALAZINE PO DOSE, PYXIS IS OUT OF STOCK. BP 144/94. CONTINUE TO MONITOR,
--- NOTE | 2019-09-17 19:25 | NUR ---
REPORT GIVEN TO MUMTAZ RNKUNAL. RECEIVED HYDRALAZINE FROM PHARMACY AND ADMINISTERED ORDERED DOSE.
--- NOTE | 2019-09-17 19:40 | NUR ---
Residual 38 ML HOB 35 degrees feeding running at 30 ml/hr bowel sounds hypoactive
[2019-09-17] MEDS: hydrALAZINE HCL 20 MG/ML VL IV PRN (22:41)
--- NOTE | 2019-09-17 23:52 | NUR ---
Residual 140 ML Stopped feeding, was running at 30 ml/hr
[2019-09-18] VITALS (105 sets, daily range): BP systolic 131–182; BP diastolic 40–118
--- NOTE | 2019-09-18 | NUR ---
HELD PO MEDS HOLDING PO MEDS BECAUSE OF HIGH RESIDUAL 140 CC WILL ADMINISTER HYDRALAZINE INSTEAD PER MD ORDERS
[2019-09-18] MEDS: MIDAZOLAM DRIP 50 mg/50mL 50 ML IV SCH ×4 (00:12→20:00)
--- NOTE | 2019-09-18 00:24 | NUR ---
OPENING NOTE PT SEDATED WHILE INTUBATED. NO SPONTANEOUS MOVEMENT NOTED. LUNGS CLEAR BUT DIMINISHED THROUGHOUT. SUCTIONED FOR SMALL AMOUNT OF THIN CLEAR FLUID FROM MOUTH. OLIVER CATHETER DRAINING CLEAR YELLOW URINE. PT WITH SACRAL OPTIFOAM IN PLACE AND SKIN UNDER IS CLEAR OF ANY BREAKDOWN. RAILS UP X4 AND BED IN LOW POSITION FOR PT SAFETY. PT IS ON SPECIALITY BED.
[2019-09-18] MEDS: hydrALAZINE HCL 10 MG TAB PO SCH ×4 (00:32→12:21)
[2019-09-18] MEDS: PROPOFOL 100 ML IV SCH ×6 (00:42→16:30)
--- NOTE | 2019-09-18 03:02 | NUR ---
CARES FULL BED LINEN CHANGE, PARTIAL BED BATH GIVEN. PT HAD LIQUID BROWN BM OPTIFOAM APPLIED TO SACRUM A PREVENTATIVE MEASURE
--- NOTE | 2019-09-18 04:22 | NUR ---
BLOOD SUGAR ON RIGHT HAND BLOOD SUGAR IS 404 ON LEFT HAND BLOOD SUGAR IS 337 ADMINISTERED INSULIN USING HIGHEST BLOOD SUGAR READING WILL CHECK WHAT AM LAB RESULTS WILL READ
[2019-09-18] MEDS: ACETAMINOPHEN 650 mg PER 20 mL UD PO PRN ×2 (04:39→05:49)
[2019-09-18 05:15] LABS: Potassium 3.7 mmol/L (3.5-5.1)
[2019-09-18 05:27] LABS: Albumin 2.3 g/dL (3.4-5.0); Bilirubin, Total 0.6 mg/dL (0.2-1.0); Calcium 8.2 mg/dL (8.5-10.1); Total Protein 6.3 g/dL (6.4-8.2)
--- NOTE | 2019-09-18 05:50 | NUR ---
JENNIFER IRBY HELD RESIDUAL 100CC PAGED HOSPITALIST FOR POSSIBLE REGLAN
[2019-09-18] MEDS: PIPERACILLIN-TAZOB 3.375GM 100 ML IV SCH ×5 (05:52→23:47)
[2019-09-18] MEDS: CLINDAMYCIN 600MG IV 50 ML IV SCH ×3 (05:52→21:33)
--- NOTE | 2019-09-18 06:44 | NUR ---
HOSPITALIST CALLED BACK REGARDING HIGH RESIDUAL NO NEW ORDERS
--- NOTE | 2019-09-18 07:30 | NUR ---
REPORT REPORT RECEIVED FROM MUMTAZ RNKUNAL. BEDSIDE CHECK DONE.
--- NOTE | 2019-09-18 07:50 | NUR ---
ASSESSMENT PT RESTING WITH EYES CLOSED. SEDATED WHILE INTUBATED. NO SPONTANEOUS MOVEMENT NOTED OR WITHDRAWL TO PAIN. VENTILATOR SETTINGS OF: 8 FR ETT/26 AT THE LIP, AC 24, TV 500, 40% AND PEEP OF 8. LUNGS CLEAR THROUGHOUT. ETT SUCTIONED FOR SCANT CLEAR THIN FLUID. O2 SAT OF 95% AND RIDING THE VENT AT RR 24. TELE SR 61 WITH FIRST DEGREE AV BLOCK, BBB AND ELEVATED ST IN LEADS I AND II. PALPABLE PULSES TO ALL EXTREMITIES. SCDS TO BLE. ABD SOFT WITH HYPOACTIVE BOWEL SOUNDS NOTED. LEFT NARES NGT, + PLACEMENT AND RESIDUAL OF 40 ML OF FEEDING. FEEDING HAS BEEN OFF FOR MOST OF THE NIGHT FOR HIGH RESIDUALS. CONTINUE TO MONITOR RESIDUALS. LAST BM WAS ON THE HELP DESK ANALYST. OLIVER CATHETER DRAINING CLEAR YELLOW URINE. REPOSITIONED TO HIS BACK. SKIN INTACT EXCEPT FOR SKIN SPLIT NOTED ON THE LEFT SIDE OF THE UPPER LIP, TYLOR. ON SPECIALTY BED FOR SKIN PROTECTION. IVF TO RIGHT FEMORAL TLC, SITE BENIGN. CONTINUE TO MONITOR.
--- NOTE | 2019-09-18 07:50 | NUR ---
PT TEACHING PT UNABLE TO BENEFIT FR4 PT TEACHING AT THIS TIME HE IS SEDATED AND INTUBATED Addendum: 09/18/19 at 0829 by Kelsey Chen RN Amended: Links added.
--- NOTE | 2019-09-18 09:14 | NUR ---
Nutrition Followup Notes Pt wt is 174.8 kg Pt is sedated, intubated with no relatives at bedside when rounded this morning. Pt tube feeding of Glucerna 1.2 running @ 30 ml/hr was stopped d/t high residuals of 140 ml per RN doc. Pt is currently sedated with propofol @ 23.814 ml/hr, providing 629 kcals from lipids. Will continue to monitor PO status, skin status, pertinent labs and weight trends. Will f/u in 2-3 days. Est Energy needs ABW 124 k-2480kcals (17-20 kcal/kgBW), Est Protein needs: 99-124 gms/day (0.8-1.0 gm/kgBW) d/t pt elev RFT CKD. Will continue to monitor and reassess prn. LABS: BUN 34 H, CR 1.79 H, GFR 43, CA 8.2 L, ALB 2.3 L GI: Pt with daily BM, incontinent, per RN doc BS: 10 high risk. Refer to wound assessment report for full details. PES: Impaired swallowing r.t current medical condition aeb pt`s intubated sedated with order of NPO Decreased nutrient needs r/t adiposity aeb pt`s high BMI of 50.2 kgm2 Malnutrition related to morbid BMI> or equal to 40 Malnutrition related to morbid obesity Yes Comments 1) advance diet as medically feasible 2) consider EN support with Glucerna @ 75 ml/hr on current rate of propofol per MD approval 3) refer to [facility]PD dietitan on DC 4) continue current plan of care
--- NOTE | 2019-09-18 09:15 | NUR ---
PT STILL NOT RESPONSIVE WITH NO COUGH OR GAG. DECREASED VERSED TO 6 MG/HR AND DIPRIVAN TO 20 MCG/KG/HR. CONTINUE TO MONITOR.
[2019-09-18] MEDS: CARVEDILOL 12.5 MG TAB PO SCH ×2 (10:00→21:31)
[2019-09-18] MEDS: FAMOTIDINE (10MG/ML) 2ML VL IV SCH ×2 (10:01→21:32)
[2019-09-18] MEDS: PANTOPRAZOLE 40 MG/10 ML VIAL INJ IV SCH (10:01)
[2019-09-18 10:26] LABS: Basophils # (auto) 0 10 ^3/uL (0-0.2); Basophils % (auto) 0.4 % (0.0-2.0); Eosinophils # (auto) 0.8 10 ^3/uL (0-0.8); Eosinophils % (auto) 6.3 % (0.0-7.0); Hematocrit 36.2 % (41.0-53.0); Hemoglobin 11.6 g/dL (13.5-17.5); Lymphocytes # (auto) 0.7 10 ^3/uL (0.4-5.4); Mean Corpuscular Hemoglobin 27.3 pg (28.0-32.0); Mean Corpuscular Hgb Conc. 32.2 g/dL (32.0-36.0); Mean Corpuscular Volume 84.8 fL (80.0-100.0); Monocytes # (auto) 0.8 10 ^3/uL (0-1.3); Monocytes % (auto) 6.4 % (0.0-12.0); Neutrophils # (auto) 10.9 10 ^3/uL (1.6-8.6); Neutrophils % (auto) 81.9 % (37.0-80.0); Platelet Count (auto) 211 10^3/uL (140-450); Red Blood Cells 4.27 10^6/uL (4.5-5.90); Red Cell Distribution Width 15.5 % (11.8-14.3); White Blood Cell 13.2 10^3/uL (4.4-10.8)
--- NOTE | 2019-09-18 11:50 | NUR ---
MD VISIT DR DICKEY HERE TO EXAMINE PT AND I UPDATED HER ON THE PT'S CURRENT CONDITION. I ASKED ABOUT STARTING PT ON REGLAN TO HELP HIM PROCESS THE FEEDING BETTER AND ALSO LET HER KNOW I HAD BEEN TITRATING DOWN ON THE SEDATION AND ALSO THAT PUPILS SLIGHTLY UNEQUAL. PUPILS NOW 4 AND FIXED, BOTH. PT STARTING TO COUGH A LOT AND UNABLE TO QUIET IT DOWN DESPITE SUCTIONING. WENT BACK UP TO 20 MCG ON THE DIPRIVAN AND CONTINUE TO MONITOR.
--- NOTE | 2019-09-18 12:30 | NUR ---
ADMINISTERED ORDERED PO HYDRALAZINE. NGT RESIDUAL IS ZERO. STARTED GLUCERNA FEEDING AT 10 ML/HR AND WILL MONITOR RESIDUALS.
[2019-09-18] MEDS: METOCLOPRAMIDE HCL 5MG/ml INJ 2ml VIAL IV SCH ×2 (14:05→21:32)
--- NOTE | 2019-09-18 14:16 | NUR ---
TITRATED FIO2 TO 35%. SPO2 94% AFTER CHANGE. RN CHEY RAY.
[2019-09-18] MEDS: hydrALAZINE HCL 20 MG/ML VL IV PRN (14:50)
--- NOTE | 2019-09-18 16:00 | NUR ---
PT INCONTINENT OF LARGE AMOUNT OF LOOSE AND LIQUID BROWN BM. SHANIA CARE GIVEN AND PARTIAL LINEN CHANGE DONE. TURNED TO HIS RIGHT SIDE.
[2019-09-18] MEDS: hydrALAZINE HCL 25 MG TAB PO SCH ×2 (18:50→23:46)
--- NOTE | 2019-09-18 19:30 | NUR ---
REPORT REPORT GIVEN TO MUMTAZ RNKUNAL. BEDSIDE CHECK DONE.
--- NOTE | 2019-09-18 19:40 | NUR ---
PUPILS ARE FIXED RIGHT PUPIL IS 3 MM FIXED, AND LEFT PUPIL IS 2 MM AND FIXED. Addendum: 09/18/19 at 2339 by KUNAL LLANOS RN RN RIGHT UPPER AND LOWER LID ARE TWITCHING
--- NOTE | 2019-09-18 20:01 | NUR ---
ASSESSMENT PT RESTING WITH EYES CLOSED. SEDATED WHILE INTUBATED. NO SPONTANEOUS MOVEMENT NOTED OR WITHDRAWL TO PAIN. VENTILATOR SETTINGS OF: 8 FR ETT/26 AT THE LIP, AC 24, TV 500, 35% AND PEEP OF 8. LUNGS CLEAR ON RIGHT SIDE, DIMINISHDED ON LEFT SIDE. NO ORAL SECRETIONS NOTED, ORAL CARE PROVIDED. O2 SAT OF 93% AND RIDING THE VENT AT RR 24. TELE SR [address] IN LEADS I AND II. PALPABLE PULSES TO ALL EXTREMITIES. SCDS TO BLE. ABD LARGE SOFT WITH NORMOACTIVE BOWEL SOUNDS NOTED. LEFT NARES NGT, + PLACEMENT AND RESIDUAL OF 4 ML OF FEEDING. FEEDING RUNNING AT 20 ML/HR. CONTINUE TO MONITOR RESIDUALS. LAST 2 BM WAS ON THE DAY SHIFT. OLIVER CATHETER DRAINING CLEAR YELLOW URINE. REPOSITIONED TO HIS BACK. SKIN INTACT EXCEPT FOR SKIN SPLIT NOTED ON THE LEFT SIDE OF THE UPPER LIP, TYLOR. ON SPECIALTY BED FOR SKIN PROTECTION. IVF TO RIGHT FEMORAL TLC, SITE BENIGN. CONTINUE TO MONITOR. BED IN LOWEST POSITION, RAILS X4 FOR PT SAFETY.
--- NOTE | 2019-09-18 21:00 | NUR ---
SEDATION VACATION STOPPED PROPOFOL COMPLETELY, ABOUT 8 MIN LATER PT WAS BREATHING AGAINS VENTILATOR, RR WENT UP TO 28. RESTARTED FENTANYL
[2019-09-19] VITALS (107 sets, daily range): BP systolic 105–164; BP diastolic 62–106
--- NOTE | 2019-09-19 00:03 | NUR ---
NO MEDICATION IN THE PYXIS PYXIS SAYS THERE ARE STILL HYDRALAZINE IN THE PYXIS WHEN THE REALITY POCKET IS EMPTY. WILL NOTIFY PHARMACY, CALLED [facility] FOR THEM TO SEND ME THE MED
[2019-09-19] MEDS: hydrALAZINE HCL 25 MG TAB PO SCH ×4 (00:10→18:20)
[2019-09-19] MEDS: PROPOFOL 100 ML IV SCH ×6 (00:12→20:50)
--- NOTE | 2019-09-19 02:00 | NUR ---
INSERTED FLEXI SEAL DURING BED BATH PT WAS BREATHING AGAINS THE VENT, SAT DROPPED TO LOW 80% BEFORE EVEN TURNING WAS DONE PT HAD DIARRHEA SECOND TIME THIS NIGHT PT HAD LIQUID STOOL DURING THE DAY SHIFT PT MAY NOT TOLERATED TURNS AND CLEANING CALL HOSPITALIST; NEW ORDER: FLEXI SEAL.
--- NOTE | 2019-09-19 02:10 | NUR ---
CARES BED BATH AND FULL BED LINEN CHANGE
--- NOTE | 2019-09-19 02:15 | NUR ---
PT DESATURATING NOTIFIED RT I WILL CONTINUE INCREASING SEDATION (PT BREATHING AGAINST VENTILATOR)
--- NOTE | 2019-09-19 04:14 | NUR ---
NEURAL ASSESSMENT POSITIVE COUGH AND GAG RIGHT EYE 3MM AND FIXED LEFT EYE 2MM AND FIXED NO RESPONSE TO PAIN
[2019-09-19 04:37] LABS: Hemoglobin 11.7 g/dL (13.5-17.5); Mean Corpuscular Hemoglobin 28.1 pg (28.0-32.0); Mean Corpuscular Hgb Conc. 33.4 g/dL (32.0-36.0); Mean Corpuscular Volume 84.3 fL (80.0-100.0); Platelet Count (auto) 201 10^3/uL (140-450); Red Blood Cells 4.15 10^6/uL (4.5-5.90); Red Cell Distribution Width 15.1 % (11.8-14.3); White Blood Cell 13.1 10^3/uL (4.4-10.8)
[2019-09-19] MEDS: MIDAZOLAM DRIP 50 mg/50mL 50 ML IV SCH ×3 (04:39→19:15)
[2019-09-19 04:55] LABS: Albumin 2.3 g/dL (3.4-5.0); Calcium 8.2 mg/dL (8.5-10.1); Potassium 3.7 mmol/L (3.5-5.1)
[2019-09-19 04:59] LABS: BUN/Creatinine Ratio 20.4; Bilirubin, Total 0.5 mg/dL (0.2-1.0); Total Protein 6.5 g/dL (6.4-8.2)
--- NOTE | 2019-09-19 05:00 | NUR ---
SALES SERVICE REP IN THE ROOM PT DID NOT TOLERATE PLACING XRAY BOARD BEHIND HIM BREATHING AGAINS VENTILATOR, DESATURATING LOW 80% WILL TITRATE SEDATION ACCORDINGLY
[2019-09-19 05:15] LABS: Basophils % (manual) 0 (0.0-2.0); Blast Cells 0; Metamyelocytes % 0; Myelocytes % 0; Promyelocytes % 0; Reactive Lymphocytes 0
[2019-09-19] MEDS: PIPERACILLIN-TAZOB 3.375GM 100 ML IV SCH ×3 (06:15→18:16)
[2019-09-19] MEDS: METOCLOPRAMIDE HCL 5MG/ml INJ 2ml VIAL IV SCH ×3 (06:15→22:02)
[2019-09-19] MEDS: CLINDAMYCIN 600MG IV 50 ML IV SCH ×3 (06:19→21:50)
--- NOTE | 2019-09-19 06:31 | NUR ---
FEEDING REASSESSMENT FEEDING WAS RUNNING AT 40 ML/HR FOR 4 HOURS RESIDUAL IS 0 ML HEAD OF BED 35 DEGREES.
[2019-09-19 06:38] LABS: Band Neutrophils % (manual) 3; Eosinophils % (manual) 6 (0-7)
[2019-09-19 06:39] LABS: Lymphocytes % (manual) 8 (10.0-50.0); Monocytes % (manual) 6 (0-12)
--- NOTE | 2019-09-19 07:30 | NUR ---
REPORT REPORT RECEIVED FROM MUMTAZ RNKUNAL. BEDSIDE CHECK DONE.
--- NOTE | 2019-09-19 07:45 | NUR ---
ASSESSMENT PT RESTING IN BED WITH EYES CLOSED, SEDATED WHILE INTUBATED. NO SPONTANEOUS MOVEMENT NOTED. WEAK COUGH WITH ETT SUCTIONING AND NO GAG EVEN WITH ORAL SUCTIONING. PUPILS , RIGHT 5/FIXED, LEFT, 2 AND FIXED. WILL NOTIFY MD. VENTILATOR SETTINGS: 8 FR ETT/ 26 AT THE LIP, TV 500, AC 24, 40% FIO2 AND PEEP OF 8. LUNGS CLEAR THROUGHOUT. ETT SUCTION FOR SMALL AMOUNT OF THIN CLEAR FLUID AND ORALLY FOR MODERATE AMOUNT OF THICK CLEAR STREAKED WITH BLOOD. TELE SR [address] IN LEADS I AND II. PALPABLE PULSES TO ALL EXTREMITIES. SCDS TO BLE. ABD SOFT WITH + BOWEL SOUNDS. LEFT NARES NGT WITH + PLACEMENT. GLUCERNA 1.2 INFUSING AT 20 ML/HR WITH NO RESIDUAL NOTED. PT WITH FLEXISEAL IN PLACE, DRAINING SMALL AMOUNT OF LIQUID BROWN BM WITH SOME LEAKAGE NOTED. SHANIA CARE GIVEN AND PAD CHANGED. NEW OPTIFOAM DRESSING APPLIED. OLIVER CATHETER DRAINING YELLOW URINE WITH SMALL AMOUNT OF SEDIMENT. PT WITH AREA OF FIRMNESS AND BRUISING NOTED TO RIGHT SIDE OF HIS NECK. NO CHANGE FROM YESTERDAY. BED IN LOW POSITION AND RAILS UP X4 FOR PT SAFETY. CONTINUE TO MONITOR.
--- NOTE | 2019-09-19 07:47 | NUR ---
MD VISIT/NEUROLOGY PT SEEN AND EXAMINED BY DR MEZA. I MADE HIM AWARE OF PT'S PUPILS, RIGHT 5 AND FIXED AND LEFT 2 AND FIXED. PT WITH WEAK COUGH WITH ETT SUCTIONING BUT NO GAG, EVEN WITH ORAL SUCTIONING.
--- NOTE | 2019-09-19 09:22 | NUR ---
CARDIOLOGY PT SEEN AND EXAMINED BY CAMMIE SOUSA, CARDIOLOGY CHAINSTITCH HEMMER. UPDATED HER ON THE PT'S CURRENT CONDITION AND THAT SHAMEKA CONTRERAS AND SUSANA HAVE SPOKEN WITH THE PT'S OVER THE WEEKEND, AND SHE IS CONSIDERING A TERMINAL WEAN.
[2019-09-19] MEDS: CARVEDILOL 12.5 MG TAB PO SCH ×3 (09:53→21:53)
[2019-09-19] MEDS: PANTOPRAZOLE 40 MG/10 ML VIAL INJ IV SCH (09:53)
[2019-09-19] MEDS: FAMOTIDINE (10MG/ML) 2ML VL IV SCH (09:53)
[2019-09-19] MEDS ORDERED: FUROSEMIDE 40 MG/4 ML VIAL IV ONE (12:30)
[2019-09-19] MEDS ORDERED: hydrALAZINE HCL 20 MG/ML VL IV PRN (13:30)
--- NOTE | 2019-09-19 16:00 | NUR ---
REPOSITIONED FOR COMFORT TO HIS LEFT SIDE.
--- NOTE | 2019-09-19 16:30 | NUR ---
PT WITH O2 SATS DOWN TO 86% , SUCTIONED VIA ETT FOR SMALL AMOUNT OF THIN CLEAR FLUID AND ORALLY FOR MODERATE AMOUNT OF THICK CREAMY FLUID WITH STREAKS OF BLOOD. O2 SAT UP TO 90% . REDUCED TURN TO THE LEFT WITH INPROVEMENT NOTED.
--- NOTE | 2019-09-19 18:09 | NUR ---
Respiratory note: RECEIVED PT ON VENT V16. VENT CONNECTED TO RED OUTLET AND O2 SOURCE. ALARMS ARE SET AND AUDIBLE AMBU BABG AND MASK AT BEDSIDE. BS ARE DIMINISHED T/O SXD VIA ETT FOR SCANT THICK REILLY. WILL CONTINUE TO MONITOR Q2H AND NEEDED.
--- NOTE | 2019-09-19 19:30 | NUR ---
REPORT REPORT GIVEN TO KUNAL PANDYA RN.
--- NOTE | 2019-09-19 21:00 | NUR ---
PT WON'T TOLERATE SEDATION VACATION PT ALREADY BREATHING AGAINS VENT WITH MILD ACTIVITY Addendum: 09/19/19 at 2331 by KUNAL LLANOS RN RN Amended: Links added.
--- NOTE | 2019-09-19 22:14 | NUR ---
PAGED RT PRESSURE CUFF IS LEAKING WHEN PT IS BREATHING OVER VENT
[2019-09-20] VITALS (105 sets, daily range): BP systolic 106–176; BP diastolic 65–110
[2019-09-20] MEDS: PIPERACILLIN-TAZOB 3.375GM 100 ML IV SCH ×4 (00:10→18:33)
--- NOTE | 2019-09-20 00:11 | NUR ---
COOLING MEASURES IMPLEMENTED TEMP 99.9 AXILLARY PLACED ICE BACKS BILATERALLY AXILLA
[2019-09-20] MEDS: PROPOFOL 100 ML IV SCH ×5 (01:12→12:25)
--- NOTE | 2019-09-20 03:00 | NUR ---
CARES PT IS MAXED OUT ON SEDATION, DID NOT TOLERATE TURNING, PT STARTS TO BUCKLING THE VENT AND HIS SATURATION DROP LOW 72% PT RECEIVED PARTIAL BED BATH AND FULL BED LINEN CHANGE.
[2019-09-20] MEDS: MIDAZOLAM DRIP 50 mg/50mL 50 ML IV SCH ×4 (03:33→18:34)
[2019-09-20 05:05] LABS: Basophils # (auto) 0.1 10 ^3/uL (0-0.2); Basophils % (auto) 0.4 % (0.0-2.0); Eosinophils # (auto) 0.9 10 ^3/uL (0-0.8); Eosinophils % (auto) 6.2 % (0.0-7.0); Hematocrit 34.4 % (41.0-53.0); Hemoglobin 11.3 g/dL (13.5-17.5); Lymphocytes # (auto) 1.1 10 ^3/uL (0.4-5.4); Lymphocytes % (auto) 7.3 % (10.0-50.0); Mean Corpuscular Hemoglobin 27.9 pg (28.0-32.0); Mean Corpuscular Hgb Conc. 32.9 g/dL (32.0-36.0); Mean Corpuscular Volume 84.7 fL (80.0-100.0); Monocytes # (auto) 1.1 10 ^3/uL (0-1.3); Monocytes % (auto) 7.7 % (0.0-12.0); Neutrophils # (auto) 11.5 10 ^3/uL (1.6-8.6); Neutrophils % (auto) 78.4 % (37.0-80.0); Nucleated Red Blood Cells % 0.1 %; Platelet Count (auto) 215 10^3/uL (140-450); Red Blood Cells 4.07 10^6/uL (4.5-5.90); Red Cell Distribution Width 15.5 % (11.8-14.3); White Blood Cell 14.6 10^3/uL (4.4-10.8)
[2019-09-20 05:21] LABS: BUN/Creatinine Ratio 22.4; Calcium 8.3 mg/dL (8.5-10.1); Potassium 3.6 mmol/L (3.5-5.1)
[2019-09-20] MEDS: CLINDAMYCIN 600MG IV 50 ML IV SCH ×3 (05:36→22:00)
[2019-09-20] MEDS: METOCLOPRAMIDE HCL 5MG/ml INJ 2ml VIAL IV SCH ×3 (05:36→22:00)
[2019-09-20] MEDS: hydrALAZINE HCL 25 MG TAB PO SCH ×4 (05:38→18:33)
--- NOTE | 2019-09-20 06:19 | NUR ---
Respiratory note: RECEIVED PT ON VENT V-16 PLUGGED INTO RED OUTLET. ALL VENT ALARMS ARE AUDIBLE, AND FUNCTIONING. AMBU BAG/MASK IS AT BEDSIDE CONNECTED TO AN O2 SOURCE. ETT IS 8.0 @ THE 24 LIP LINE SECURED WITH A KG. MOVED ETT FROM CENTER, TO RIGHT. SOME LIP BREAK DOWN NOTED ON LEFT UPPER LIP. RN AWARE. BS ARE COARSE BILATERALLY. SX FOR SCANT AMOUNT OF THICK, REILLY, BLOOD TINGED SECRETIONS. GAG REFLEX NOTED. PT IS EDEMAS IN BOTH UPPER, AND LOWER EXTREMITIES. SKIN IS WARM/DRY TO THE TOUCH. PT HAS NO RESPONSE TO VERBAL STIMULI. PT BEGAN TO DESAT ONCE RN, CHEF INSTRUCTOR, AND I MOVED PT UP. PT SPO2 INCREASED BACK TO MID 90'S ONCE PT WAS BACK IN SEMI-FOWLERS POSITION. NO NEW VENT CHANGES ORDERED AT THIS TIME. RN AT BEDSIDE. WILL CONTINUE TO MONITOR PT.
[2019-09-20] MEDS: CARVEDILOL 12.5 MG TAB PO SCH ×2 (10:00→22:00)
[2019-09-20] MEDS: PANTOPRAZOLE 40 MG/10 ML VIAL INJ IV SCH (10:28)
--- NOTE | 2019-09-20 10:30 | NUR ---
Respiratory note: ETT ADVANCED 2CM FROM 24 CM AT THE LIP LINE, TO 26 CM AT THE LIP LINE PER DR PERKINS REQUEST WITHOUT INCIDENT. RN AT BEDSIDE. PT TOLERATED ADVANCEMENT OF ETT WELL. WILL CONTINUE TO MONITOR PT.
--- NOTE | 2019-09-20 11:30 | NUR ---
WOUND CARE NOTE: IN TO SEE PATIENT AT THIS TIME FOR SKIN INTEGRITY MONITORING. PATIENT CONTINUES TO REST ON BARIATRIC AIR BED. HE REMAINS INTUBATED, NON RESPONSIVE. PATIENT HAS CURRENT JASMIN SCORE OF 10. PATIENT TURNED TO LEFT SIDE, WITH ASSISTANCE OF STAFF. HE CONTINUES TO HAVE PINK, BLANCHABLE SKIN TO BONY PROMINENCES, NO OTHER WOUNDS NOTED. PATIENT REPOSITIONED ONTO LEFT SIDE, REDISTRIBUTING PRESSURE POINTS WITH PILLOWS/WEDGES. RECOMMENDATIONS: CONTINUATION WITH ALL WOUND CARE ORDERS PREVIOUSLY PRESCRIBED BY MD. WOUND CARE TEAM WILL CONTINUE TO MONITOR.
--- NOTE | 2019-09-20 11:44 | NUR ---
Nutrition Followup Notes Pt wt is 174.8 kg Pt is sedated, intubated when rounded this morning. Pt is currently sedated with propofol @ 47.627 ml/hr, providing 1256 kcals from lipids. per RN pt feeds were on hold as pt had high residuals and will restrt @ 20 ml/hr with glucerna. Will continue to monitor PO status, skin status, pertinent labs and weight trends. Will f/u in 2-3 days. Est Energy needs ABW 124 k-2480kcals (17-20 kcal/kgBW), Est Protein needs: 99-124 gms/day (0.8-1.0 gm/kgBW) d/t pt elev RFT CKD. Will continue to monitor and reassess prn. LABS: BUN 38 H, CREAT 1.7 H, CA 8.3 L, ALB 2.3 L GI: Pt with daily BM, incontinent, per RN doc BS: 10 high risk. Refer to wound assessment report for full details. PES: Impaired swallowing r.t current medical condition aeb pt`s intubated sedated with order of NPO Decreased nutrient needs r/t adiposity aeb pt`s high BMI of 50.2 kgm2 Rec: 1) advance diet as medically feasible. 2) consider EN support with Glucerna @ 40 ml/hr on current rate of propofol per MD approval. 3) refer to [facility] dietitan on DC. 4) continue current plan of care
--- NOTE | 2019-09-20 13:25 | NUR ---
FAMILY Patients Di called asking for a doctors note for work stating " that Dr. De La Cruz was going to write if for her." Dr. De La Cruz did not mention a note for the . Will call MD to verify.
--- NOTE | 2019-09-20 16:40 | NUR ---
Spoke to Dr. De La Cruz and aware that is requesting note for work, states " Will write note tomorrow for ."
--- NOTE | 2019-09-20 18:26 | NUR ---
RT NOTE RECEIVED PT INTUBATED AND ON VENT V16 ON STATED SETTINGS WITH HEATED WIRE CIRCUIT. VENT IS PLUGGED TO RED OUTLET. ALARMS ARE ON AND AUDIBLE AT NURSING STATION. AMBU BAG AT BEDSIDE AND CONNECTED TO O2 SOURCE. 8.0 ETT IS SECURED WITH ANCHORFAST WITH BITE-BLOCK AT 24 CM TO THE ORAL RIGHT. BS ARE CLEAR BILATERALLY. PT HAS A RED SPOT AT THE END OF HIS TONGUE NOTED ON THE TOP LEFT. PT WAS SUCTIONED FOR SCANT RETURN FROM ETT AND MODERATE RETURN ORALLY. CONT ORDERED. CIRCUIT TEMP 35.0, POX 94% Addendum: 09/20/19 at 1835 by Rupinder Vergara RT Amended: Links added.
--- NOTE | 2019-09-20 20:20 | NUR ---
RT NOTE ROUTINE VENT CHECK DONE. PT INTUBATED AND ON VENT V16 ON STATED SETTINGS WITH HEATED WIRE CIRCUIT. VENT IS PLUGGED TO RED OUTLET. ALARMS ARE ON AND AUDIBLE AT NURSING STATION. AMBU BAG AT BEDSIDE AND CONNECTED TO O2 SOURCE. 8.0 ETT IS SECURED WITH ANCHORFAST WITH BITE-BLOCK AT 24 CM TO THE ORAL RIGHT. BOBBY WILKINS AT BEDSIDE. WATER LEVEL IS ADEQUATE. CONT ORDERED. CIRCUIT TEMP 35.0, POX 94% Addendum: 09/20/19 at 2022 by Rupinder Vergara RT Amended: Links added.
--- NOTE | 2019-09-20 22:04 | NUR ---
RT NOTE ROUTINE VENT CHECK DONE. PT INTUBATED AND ON VENT V16 ON STATED SETTINGS WITH HEATED WIRE CIRCUIT. VENT IS PLUGGED TO RED OUTLET. ALARMS ARE ON AND AUDIBLE AT NURSING STATION. AMBU BAG AT BEDSIDE AND CONNECTED TO O2 SOURCE. 8.0 ETT IS SECURED WITH ANCHORFAST WITH BITE-BLOCK AT 24 CM TO THE ORAL RIGHT. PT WAS SUCTIONED FOR LARGE RETURN. WATER LEVEL IS ADEQUATE. CONT ORDERED. CIRCUIT TEMP 35.0, POX 95% Addendum: 09/20/19 at 2214 by Rupinder Vergara RT Amended: Links added.
[2019-09-21] VITALS (99 sets, daily range): BP systolic 87–167; BP diastolic 47–107
--- NOTE | 2019-09-21 00:08 | NUR ---
RT NOTE ROUTINE VENT CHECK DONE. PT INTUBATED AND ON VENT V16 ON STATED SETTINGS WITH HEATED WIRE CIRCUIT. VENT IS PLUGGED TO RED OUTLET. ALARMS ARE ON AND AUDIBLE AT NURSING STATION. AMBU BAG AT BEDSIDE AND CONNECTED TO O2 SOURCE. 8.0 ETT IS SECURED WITH ANCHORFAST WITH BITE-BLOCK AT 24 CM TO THE ORAL RIGHT. WATER LEVEL IS ADEQUATE. CONT ORDERED. CIRCUIT TEMP 35.0, POX 95% Addendum: 09/21/19 at 0042 by Rupinder Vergara RT Amended: Links added.
--- NOTE | 2019-09-21 02:16 | NUR ---
RT NOTE ROUTINE VENT CHECK DONE. PT INTUBATED AND ON VENT V16 ON STATED SETTINGS WITH HEATED WIRE CIRCUIT. VENT IS PLUGGED TO RED OUTLET. ALARMS ARE ON AND AUDIBLE AT NURSING STATION. AMBU BAG AT BEDSIDE AND CONNECTED TO O2 SOURCE. 8.0 ETT IS SECURED WITH ANCHORFAST WITH BITE-BLOCK AT 24 CM TO THE ORAL LEFT. PT WAS SUCTIONED FOR SM ALL RETURN ORALLY AND FROM ETT. WATER LEVEL IS ADEQUATE. CONT ORDERED. CIRCUIT TEMP 34.5, POX 98% Addendum: 09/21/19 at 0220 by Rupinder Vergara RT Amended: Links added.
--- NOTE | 2019-09-21 03:54 | NUR ---
RT NOTE ROUTINE VENT CHECK DONE. PT INTUBATED AND ON VENT V16 ON STATED SETTINGS WITH HEATED WIRE CIRCUIT. VENT IS PLUGGED TO RED OUTLET. ALARMS ARE ON AND AUDIBLE AT NURSING STATION. AMBU BAG AT BEDSIDE AND CONNECTED TO O2 SOURCE. 8.0 ETT IS SECURED WITH ANCHORFAST WITH BITE-BLOCK AT 24 CM TO THE ORAL LEFT. WATER LEVEL IS ADEQUATE. CONT ORDERED. CIRCUIT TEMP 35.0, POX 93% Addendum: 09/21/19 at 0408 by Rupinder Vergara RT Amended: Links added.
[2019-09-21 04:55] LABS: Hematocrit 35.7 % (41.0-53.0); Hemoglobin 11.7 g/dL (13.5-17.5); Mean Corpuscular Hemoglobin 27.7 pg (28.0-32.0); Mean Corpuscular Hgb Conc. 32.7 g/dL (32.0-36.0); Mean Corpuscular Volume 84.5 fL (80.0-100.0); Platelet Count (auto) 229 10^3/uL (140-450); Red Blood Cells 4.22 10^6/uL (4.5-5.90); White Blood Cell 14.4 10^3/uL (4.4-10.8)
[2019-09-21 05:14] LABS: Basophils % (manual) 0 (0.0-2.0); Blast Cells 0; Metamyelocytes % 0; Myelocytes % 0; Promyelocytes % 0; Reactive Lymphocytes 0
[2019-09-21 06:05] LABS: Band Neutrophils % (manual) 4; Eosinophils % (manual) 10 (0-7)
[2019-09-21 06:06] LABS: Lymphocytes % (manual) 9 (10.0-50.0); Monocytes % (manual) 6 (0-12)
[2019-09-21] MEDS: hydrALAZINE HCL 25 MG TAB PO SCH ×4 (06:14→18:17)
[2019-09-21] MEDS: METOCLOPRAMIDE HCL 5MG/ml INJ 2ml VIAL IV SCH ×3 (06:14→22:22)
[2019-09-21] MEDS: CLINDAMYCIN 600MG IV 50 ML IV SCH ×3 (06:14→22:22)
[2019-09-21] MEDS: PIPERACILLIN-TAZOB 3.375GM 100 ML IV SCH ×4 (06:14→18:16)
[2019-09-21] MEDS: PROPOFOL 100 ML IV SCH ×3 (07:27→18:17)
[2019-09-21] MEDS: MIDAZOLAM DRIP 50 mg/50mL 50 ML IV SCH (08:05)
--- NOTE | 2019-09-21 08:20 | NUR ---
MD Dr. De La Cruz at bedside updated on patient condition with no new orders received.
[2019-09-21] MEDS: PANTOPRAZOLE 40 MG/10 ML VIAL INJ IV SCH (10:41)
[2019-09-21] MEDS: CARVEDILOL 12.5 MG TAB PO SCH ×2 (10:41→22:00)
--- NOTE | 2019-09-21 11:15 | NUR ---
MD Dr. Ly at bedside updated on patient condition with no new orders received.
--- NOTE | 2019-09-21 12:45 | NUR ---
FAMILY Patients came by to the hospital lobby to machine operator picker MD's letter for her work.
--- NOTE | 2019-09-21 17:25 | NUR ---
MD Dr. Contreras at bedside updated on patient condition with no new orders.
--- NOTE | 2019-09-21 18:35 | NUR ---
Respiratory note: INCREASED FIO2 TO 45%, PT DESATURATED TO 84% AFTER SUCTIONING, WILL TITRATED FIO2 TOLERATED. SPO2 NOW NOTED AROUND 93-94%. WILL CONTINUE TO MONITOR.
--- NOTE | 2019-09-21 20:50 | NUR ---
RT PAGED HOSPITALIST DUE TO PT HAVING CUFF LEAK AND NOT PULLING TIDAL VOLUMES ON VENTILATOR. HOSPITALIST ON HIS WAY TO UNIT
--- NOTE | 2019-09-21 21:05 | NUR ---
CLAY AT BEDSIDE TO DO TUBE EXCHANGE. RT SORENSON AT BEDSIDE WITH EQUIPMENT. VITAL SIGNS STABLE AT THIS TIME. PT vT STILL LOW ON VENTILATOR. TUBE SUCCESSFULLY REPLACED WITH SIZE 8.0/ 26 AT THE LIP. VENT SETTINGS STILL THE SAME.
--- NOTE | 2019-09-21 21:25 | NUR ---
Respiratory note: PT NOTED TO HAVE LOW VT VOLUMES ON THE VENTILATOR, HIGH RR, LOW SPO2 AND AUDIBLE GARGLE SOUND COMING FROM MOUTH. CUFF PRESSURE RECHECKED, NOTED AT [id number], PREVIOUSLY CHECKED AND WAS NOTED AT [id number]. JASON WILLIAMSON NOTIFIED, ET TUBE CUFF MAY HAVE BLOWN. ET TUBE EXCHANGE DONE BY JASON WILLIAMSON. NEW 8.0 ET TUBE CUFF CHECKED BEFORE INSERTION, FUNCTIONING PROPERLY. ET TUBE CHANGES BY ORTGEA VIA BOUGIE, NEW TUBE SECREUED AT 26 CM. PT PLACED BACK ON VENT WITH PREVIOUS SETTINGS. AFTER 5 MINS, PT NOTE TO HAVE AUDIBLE GARGLING AGAIN. CLAY CALLED BACK TO BEDSIDE, ET TUBE SIZE 9.0 PREPARED, ET TUBE CHANGED, UNABLE TO BAG PT. ET TUBE REMOVED AND PT WAS REINTUBATED BY JASON WILLIAMSON WITH A SIZE 9.0 ETT SECURED WITH KG AT 26CM.. BILATERAL CHEST RISE NOTED, POSITIVE COLOR CAPNOGRAPHY. XRAY CALLED TO BEDSIDE. ETT TUBE ADVANCED TO 28 POST CHEST XRAY. PT PLACED BACK ON VENT WITH PREVIOUS SETTINGS.
--- NOTE | 2019-09-21 22:20 | NUR ---
Respiratory note: PT DESATURATION NOTED ALONG WITH AUDIBLE GARGLE, LOW VT, AND HIGH RR. CUFF PRESSURE CHECKED, AT ADEQUATE VOLUMES. PT DESYNCHRONIZED WITH VENT, PT GETTING NO VOLUMES. PT REMOVED FROM VENT AND BAGGED WITH 100% FIO2 VIA AMBU BAG WITH PEEP VALVE, IMPROVEMENT SEEN IN SATURATION. SHAHBAZ COWAN, STATED TO HAVE DR. WILMA COWAN, RN PAGED WILMA, NO ANSWER. PT PLACED BACK ON VENT, LOW VOLUMES NOTED AND DESATURATION. JASON WILLIAMSON PAGED AGAIN.
--- NOTE | 2019-09-21 22:25 | NUR ---
ONE OF MD HIGGINS NOTED PHONE NUMBERS WAS PAGED TO MAKE HIM AWARE OF CHANGE IN PT CONDITION, NEW TUBE, AND PREVIOUSLY NOTED EVENTS. AWAITING CALLBACK.
--- NOTE | 2019-09-21 22:28 | NUR ---
ATTEMPTED TO REACH MD BERMUDEZ AT ANOTHER NOTED PHONE NUMBER TO MAKE HIM AWARE OF PT CONDITION. AWAITING REPLY.
--- NOTE | 2019-09-21 22:40 | NUR ---
Respiratory note: JASON WILLIAMSON CALLED BACK, UPDATED ON PT ON CONDITION. ORDER GIVEN TO HAVE PT PLACED ON PRESSURE CONTROL SETTINGS RR 24, PIP 30, PEEP +5, 0.9 I-TIME. ABG TO FOLLOW, PT TOLERATING VENT SETTINGS WELL, TIDAL VOLUMES IMPROVED. RN MADE AWARE OF VENT CHANGES. STILL AWAITING DR DILLON'S CALL BACK.
--- NOTE | 2019-09-21 22:41 | NUR ---
MD BERMUDEZ PAGED. VOICEMAIL LEFT. STILL AWAITING CALLBACK. HOSPITALIST CLAY AWARE OF ALL PREVIOUSLY NOTED EVENTS, NEW ORDERS RECEIVED BY RT FROM CLAY.
--- NOTE | 2019-09-21 23:16 | NUR ---
AIDAN CALL BACK. MADE HIM AWARE OF PT CONDITION, PREVIOUSLY NOTED EVENTS, NEW VENT SETTINGS AND PENDING ABG. SAID OK AND GAVE NEW ORDERS FOR LEVOPHED IF THIS RN CANNOT MAINTAIN BP WHILE DECREASING SEDATION.
[2019-09-22] VITALS (67 sets, daily range): BP systolic 99–175; BP diastolic 60–106
[2019-09-22] MEDS: PIPERACILLIN-TAZOB 3.375GM 100 ML IV SCH ×3 (00:12→11:22)
--- NOTE | 2019-09-22 02:27 | NUR ---
Respiratory note: TITRATED FIO2 TO 90%, PT TOLERATING NEW VENT SETTINGS WELL. BLOODY SECRETIONS NOTED DURING SUCTION. SNORE STILL AUDIBLE, CUFF PRESSURE CHECKED, SALVAGE ENGINEER CLAY AND DR. BERMUDEZ AWARE. NEW NO RESPIRATORY ORDERS AT THIS TIME. WILL CONTINUE TO MONITOR.
--- NOTE | 2019-09-22 03:02 | NUR ---
Respiratory note: AT BEDSIDE DUE TO VENT ALARMING, LOW VT AND HIGH PRESSURE. SPO2 NOTED AT 73%. PT REMOVED FROM VENT AND BAGGED WITH 100% FIO2 VIA AMBU BAG AND PEEP VALVE. PT SPO2 IMPROVED TO 95%, PT PLACED BACK ON VENT WITH PREVIOUS SETTINGS. WILL CONTINUE TO MONITOR.
--- NOTE | 2019-09-22 04:05 | NUR ---
PT CARE UNABLE TO TURN PT AND DO AUGUST CHANGE DUE TO PT BEING ON 100% FI02 AND NOT MAINTAINING SATURATIONS. PT STILL NOT HAVING ADEQUATE vT ON VENTILATOR. MDS AWARE. FREQUENT SUCTIONING TO MOUTH AND DOWN ET TUBE WITH BLOODY SECRETIONS AND SMALL CLOTS NOTED. SNORE AUDIBLE DESPITE CUFF BEING ADEQUATELY INFLATED AND NEWLY PLACED TUBE. CHG BATH GIVEN AND GOWN CHANGE DONE. CENTRAL LINE DRESSING CHANGE DONE TO RIGHT FEM SITE USING STERILE TECHNIQUE. NO S/S OF INFECTION NOTED. DRESSING IS TIMED, DATED, AND INITIALED.
[2019-09-22 04:32] LABS: Basophils # (auto) 0.1 10 ^3/uL (0-0.2); Basophils % (auto) 0.6 % (0.0-2.0); Eosinophils # (auto) 1.7 10 ^3/uL (0-0.8); Eosinophils % (auto) 9.3 % (0.0-7.0); Hematocrit 36.6 % (41.0-53.0); Hemoglobin 12.1 g/dL (13.5-17.5); Lymphocytes % (auto) 5.8 % (10.0-50.0); Mean Corpuscular Hemoglobin 27.7 pg (28.0-32.0); Mean Corpuscular Volume 83.9 fL (80.0-100.0); Monocytes # (auto) 1.3 10 ^3/uL (0-1.3); Monocytes % (auto) 7.1 % (0.0-12.0); Neutrophils % (auto) 77.2 % (37.0-80.0); Nucleated Red Blood Cells % 0.1 %; Platelet Count (auto) 282 10^3/uL (140-450); Red Blood Cells 4.36 10^6/uL (4.5-5.90); Red Cell Distribution Width 15.7 % (11.8-14.3); White Blood Cell 18.1 10^3/uL (4.4-10.8)
[2019-09-22 04:50] LABS: Potassium 3.3 mmol/L (3.5-5.1)
[2019-09-22 04:56] LABS: BUN/Creatinine Ratio 16.3; Calcium 8.6 mg/dL (8.5-10.1)
--- NOTE | 2019-09-22 05:09 | NUR ---
Respiratory note: FIO2 TITRATED TO 90%.
[2019-09-22] MEDS: CLINDAMYCIN 600MG IV 50 ML IV SCH ×2 (05:46→13:14)
[2019-09-22] MEDS: hydrALAZINE HCL 25 MG TAB PO SCH ×4 (05:46→12:00)
[2019-09-22] MEDS: METOCLOPRAMIDE HCL 5MG/ml INJ 2ml VIAL IV SCH ×2 (05:46→13:13)
--- NOTE | 2019-09-22 07:30 | NUR ---
Opening Shift Note Assumed care of patient, intubated and sedated. No S/S of pain. LT nare NGT clamped. See interventions for complete assessment. Bed locked on low position, side rails up x2, bed alarms on at all times, will continue to monitor for changes Q1hr and PRN.
--- NOTE | 2019-09-22 07:45 | NUR ---
Dr De La Cruz at bedside, updated on patient's status. Patient seen and examined. Will carry out new orders.
[2019-09-22] MEDS: PROPOFOL 100 ML IV SCH ×4 (08:00→13:43)
[2019-09-22] MEDS: CARVEDILOL 12.5 MG TAB PO SCH (09:14)
[2019-09-22] MEDS: PANTOPRAZOLE 40 MG/10 ML VIAL INJ IV SCH (09:14)
[2019-09-22] MEDS: MIDAZOLAM DRIP 50 mg/50mL 50 ML IV SCH ×2 (09:15→14:49)
--- NOTE | 2019-09-22 10:27 | NUR ---
Dr Ly at bedside, updated on patient's status. Patient seen and examined. Will carry out new orders.
--- NOTE | 2019-09-22 10:54 | NUR ---
Shefali Burgos ANIME ARTIST at bedside, updated on patient's status. Patient seen and examined. Will carry out new orders.
--- NOTE | 2019-09-22 11:13 | NUR ---
Nutrition Followup Notes Pt wt is 168.8 kg Pt is sedated, intubated when rounded this morning. Pt is currently sedated with propofol @ 33.339 ml/hr, providing 880 kcals from lipids. Pt with GLucerna 1.2 ordered at 40ml with 560 ml provided 09/20. Will continue to monitor PO status, skin status, pertinent labs and weight trends. Will f/u in 2-3 days. Est Energy needs ABW 124 k-2480kcals (17-20 kcal/kgBW), Est Protein needs: 99-124 gms/day (0.8-1.0 gm/kgBW) d/t pt elev RFT CKD. Will continue to monitor and reassess prn. LABS: BUN 34H, Creat 2.08H, Alb 2.3L GI: Pt with 1 BM 09/19 per RN doc BS: 10 high risk. Refer to wound assessment report for full details. PES: Impaired swallowing r.t current medical condition aeb pt`s intubated sedated with order of NPO Decreased nutrient needs r/t adiposity aeb pt`s high BMI of 50.2 kgm2 Rec: 1) advance diet as medically feasible. 2) consider EN support with Glucerna @ 40 ml/hr on current rate of propofol per MD approval. 3) refer to [facility] dietitan on DC. 4) continue current plan of care
[2019-09-22] MEDS ORDERED: POTASSIUM EFFERVESENT TAB 25 MEQ GT ONE (12:00)
[2019-09-22] MEDS ORDERED: LORazepam 2MG/ML-1ML VIAL IV PRN (12:15)
[2019-09-22] MEDS ORDERED: MORPHINE SULF INJ 2 MG/ML SYRINGE 1ML IV PRN (12:15)
--- NOTE | 2019-09-22 12:44 | NUR ---
Spoke to patient's Bette over the phone. Updated on patient's status and POC, verbalized understanding and states "we just want to see him for the last time, after that do what you have to do. But if something happens before we get there please do chest compression to keep him going. I just want my kids to see him first." Read back and verified.
--- NOTE | 2019-09-22 14:03 | NUR ---
Spoke to Clay from [facility], needed information provided, Clay stated "I'll let my claims adjuster supervisor know and we think patient is a good candidate for organ donation. Please inform attending physician." Reference number [id number]. Paged Dr Ly. Awaiting call back.
--- NOTE | 2019-09-22 14:20 | NUR ---
Patient's Bette and children at bedside.
--- NOTE | 2019-09-22 14:34 | NUR ---
Dr Ly in ICU, spoke to patient's Di regarding organ donation. Di states " No organ donation." Clay informed and states "Let me reach out to our family coordinator."
--- NOTE | 2019-09-22 14:41 | NUR ---
Received call from [facility] Family Coordinator Luna, needed information provided.
--- NOTE | 2019-09-22 14:51 | NUR ---
[facility] Family Coordinator speaking with patient's Luna over the phone.
--- NOTE | 2019-09-22 14:59 | NUR ---
Dr Barlow in ICU, updated on patient's status, informed patient is DNR. verbalized acknowledgement stating "OK, no problem."
--- NOTE | 2019-09-22 15:39 | NUR ---
Patient's children and Bette stepped out and stated "Go ahead and do what you have to do, I will wait for your call."
--- NOTE | 2019-09-22 15:41 | NUR ---
Spoke to Clay from [facility] over the phone regarding organ donation, Clay states " is not interested, go ahead and proceed, call us back when you have time of ." Read back and verified.
--- NOTE | 2019-09-22 16:10 | NUR ---
Respiratory note: PT WAS TERMINAL EXTUBATED PER FAMILY WISHES. ORDERS TO EXTUBATE.
--- NOTE | 2019-09-22 16:10 | NUR ---
Dr. Ly spoke with family regarding wishes to terminally wean patient. Family understands all aspects of weaning and understands that the outcome is . All questions and concerns addressed by Provider and by nursing. Pastoral care offered.
--- NOTE | 2019-09-22 16:33 | NUR ---
Patient pronounced by Dr Ly.
--- NOTE | 2019-09-22 16:48 | NUR ---
Attempted to inform patient's Di regarding patient's , not answering call.
--- NOTE | 2019-09-22 16:53 | NUR ---
Called Coppersmith Apprentice regarding patient's , spoke to Agatha. Awaiting call back.
--- NOTE | 2019-09-22 17:00 | NUR ---
Spoke to Santi from [facility], informed of patient's time of , provided information needed. Santi states " We can close this case because of the weight limit. Reference # [id number].
--- NOTE | 2019-09-22 17:08 | NUR ---
Spoke to patient's Di over the phone, informed of patient's time of , stated "I haven't made arrangement with the Morgue yet, I'll take care of that maybe tomorrow. And also I think I need autopsy for life insurance, but they're already closed. I will try to call them tomorrow to make sure what documents I need."
--- NOTE | 2019-09-22 17:14 | NUR ---
Received call from Tungsten Tender Alysha Travis. Tungsten Tender stated "This is not actually a reportable tailercpa's case so instead of giving you a case number, I will give you my complete name. Body is released." Read back and verified.
--- NOTE | 2019-09-22 18:00 | NUR ---
Post - mortem care rendered. Unable to remove casiano catheter. Unable to fit patient inside body bag.
--- NOTE | 2019-09-22 18:33 | NUR ---
Spoke to patient's Romy, informed patient cannot fit in the hospital's morgue because of his weight. Informed patient will be picked up by [facility] the [facility] instead, verbalized understanding and states "Ok. That means will pick him from there once I make arrangements."
--- NOTE | 2019-09-22 18:45 | NUR ---
Spoke to Kailee from [facility] the [facility], needed information provided. Awaiting call from transporter for ETA.
== END 2019-09-22 20:54 | disposition expired | DRG 870 ==
LOC: EDBD 07:18 → EDUNIT# 07:18 → ER 07:18 → TELE 07:19 → ICU WEST 23:54
PROVIDERS: ADMIT Hospitalist; ATTEND Internal Medicine
PROC: 5A1955Z Respiratory Ventilation, Greater than 96 Consecutive Hours (ICD-10-PCS; principal; 2019-09-13)
PROC: 0BH17EZ Insertion of Endotracheal Airway into Trachea, Via Natural or Artificial Opening (ICD-10-PCS; 2019-09-13)
PROC: 5A12012 Performance of Cardiac Output, Single, Manual (ICD-10-PCS; 2019-09-13)
DX: A41.89 Other specified sepsis (principal); E43 Unspecified severe protein-calorie malnutrition; G92 Toxic encephalopathy; G93.5 Compression of brain; G93.6 Cerebral edema; I26.99 Other pulmonary embolism without acute cor pulmonale; I50.33 Acute on chronic diastolic (congestive) heart failure; J96.01 Acute respiratory failure with hypoxia; N17.0 Acute kidney failure with tubular necrosis; I21.A1 Myocardial infarction type 2; G93.1 Anoxic brain damage, not elsewhere classified; I13.0 Hypertensive heart and chronic kidney disease with heart failure and stage 1 through stage 4 chronic kidney disease, or unspecified chronic kidney disease; Z68.43 Body mass index [BMI] 50.0-59.9, adult; M62.82 Rhabdomyolysis; J91.8 Pleural effusion in other conditions classified elsewhere; E11.22 Type 2 diabetes mellitus with diabetic chronic kidney disease; Z20.828 Contact with and (suspected) exposure to other viral communicable diseases; E66.01 Morbid (severe) obesity due to excess calories; E78.5 Hyperlipidemia, unspecified; E87.6 Hypokalemia; F17.200 Nicotine dependence, unspecified, uncomplicated; I46.9 Cardiac arrest, cause unspecified; N18.3 Chronic kidney disease, stage 3 (moderate); R31.29 Other microscopic hematuria; Z96.652 Presence of left artificial knee joint; R56.9 Unspecified convulsions; S10.93XA Contusion of unspecified part of neck, initial encounter; X58.XXXA Exposure to other specified factors, initial encounter; Y93.89 Activity, other specified; Y92.89 Other specified places as the place of occurrence of the external cause; Y99.8 Other external cause status; Z66 Do not resuscitate; Z51.5 Encounter for palliative care
CPT/HCPCS: 31500; 36415; 36569; 36600; 70450; 70490; 71045; 71275; 76536; 80048; 80053; 80061; 80307; 81001; 82550; 82553; 82570; 82728; 82805; 82962; 83605; 83615; 83735; 83880; 84100; 84132; 84156; 84300; 84443; 84484; 85007; 85014; 85018; 85025; 85027; 85379; 85610; 85730; 86141; 86850; 86900; 86901; 87040; 87070; 87077; 87081; 87086; 87186; 87205; 92950; 93005; 93306; 93970; 94002; 94003; 95819; 99291; A4618; C9113; G0378; J0696; J1100; J2250; J2543; J2704; J3480; J3490; J7060